=== PATIENT | male | born 1970 | race Caucasian/White ===

== ENCOUNTER 2023-11-18 07:29 | Outpatient (REF) | payer OTHER, SELFPAY ==
[2023-11-18 11:07] LABS: Appearance Urine Clear; Color Urine Dark Yellow; Glucose Urine UA Negative (Negative); Leukocyte Esterase Urine Negative (Negative); Nitrite Urine Negative (Negative); PH 5.5 (5.0-9.0); Specific Gravity - Urine 1.015 (1.005-1.025); Urine Blood Negative (Negative); Urine Ketones Negative (Negative); Urine Protein Negative (Neg-Trace)
[2023-11-18 11:09] LABS: MANUAL DIFF FLAG NO
[2023-11-18 11:11] LABS: Bacteria Urine None Seen (None Seen); Hyaline Casts Urine 0-2 /LPF (0-2); RBC Urine 0-2 /HPF (0-2); Squamous Epithelial Cell Urine 0-2 /HPF (0-2); WBC Urine 0-5 /HPF (0-5)
[2023-11-18 11:14] LABS: Basophils Percent Auto 0.5 % (0-2); Eosinophils Absolute Auto 0.1 X10*3/uL (0.0-0.4); Eosinophils Percent Auto 2.2 % (0-4); Hematocrit 44.7 % (42.0-52.0); Hemoglobin 15.8 g/dl (14.0-18.0); Imm Gran Abs Auto 0.01 X10*3/uL (0.00-0.03); Imm Gran Pct Auto 0.2 % (0.0-0.4); Lymphocytes Absolute Auto 2.1 X10*3/uL (1.2-4.9); Lymphocytes Percent Auto 33.7 % (20-40); Mean Corpuscular HGB Conc 35.3 g/dl (31.0-36.0); Mean Corpuscular Volume 96.1 fL (80.0-98.0); Mean Platelet Volume 9.3 fL (9.4-12.4); Monocytes Absolute Auto 0.6 X10*3/uL (0.1-1.2); Monocytes Percent Auto 9.3 % (2-11); Neutrophils Absolute Auto 3.4 x10*3/uL (2.0-8.3); Neutrophils Percent Auto 54.1 % (45-73); Platelet Count 342 X10*3/uL (160-400); Red Blood Count 4.65 X10*6/uL (4.60-5.80); Red Cell Distribution Width 11.1 % (11.0-16.0); White Blood Count 6.2 X10*3/uL (4.8-10.8)
[2023-11-18 11:25] LABS: Estimated Average Glucose 94 mg/dL; Hemoglobin A1c % 4.9 % (<6.0)
[2023-11-18 12:03] LABS: Creatinine Urine 74.03 mg/dL; Microalbumin Urine < 5.0 mg/L
[2023-11-18 12:34] LABS: Alanine Aminotransferase 8 U/L (0-40); Albumin Level 4.3 g/dL (3.5-5.0); Alkaline Phosphatase 74 U/L (39-117); Anion Gap 13 (12-20); Aspartate Amino Transferase 21 U/L (5-37); Bilirubin Total 0.5 mg/dL (0.0-1.0); Blood Urea Nitrogen 23 mg/dL (9-16); Calcium 9.4 mg/dL (8.4-10.2); Carbon Dioxide 26 mmol/L (22-29); Chloride 105 mmol/L (96-108); Cholesterol 181 mg/dL (<200); Estimated Glomerular Filt Rate > 60; Glucose Fasting 103 mg/dL (60-99); HDL Cholesterol 43 mg/dL (>40); LDL Cholesterol Calculated 114 mg/dL (<100); Potassium 3.8 mmol/L (3.3-5.1); Sodium 140 mmol/L (135-145); Triglycerides 120 mg/dL (<150)
[2023-11-18 12:36] LABS: Thyroid Stimulating Hormone 3.31 uIU/mL (0.32-4.0)
== END 2023-11-18 07:30 | disposition home or self-care (01) ==
LOC: HO.HMGCLDS 07:29
PROVIDERS: PCP Internal Medicine; Visit Provider Internal Medicine
DX: R73.03 Prediabetes (principal); I10 Essential (primary) hypertension
CPT/HCPCS: 36415; 80053; 80061; 81001; 82043; 82570; 83036; 84443; 85025

== ENCOUNTER 2023-12-29 09:26 | Outpatient (AMB) | payer OTHER, SELFPAY ==
[2023-12-29 09:39] VITALS: BP 135/84; PULSE 88; O2SAT 98; BMI 36.3
--- NOTE | 2023-12-29 09:39 | A.OFFVIS_ITS ---
Vital Signs 12/29/23 09:39 Height 5 ft 9 in Weight 246 lb BMI 36.3 BP 135/84 Blood Pressure Location Lt brachial Position Sitting Pulse 88 Pulse Source Pulse Oximeter Pulse Oximetry (%) 98 Oxygen Delivery Method Room Air Intake Visit Reasons: Polyneuropathy Allergies No Known Allergies Allergy (Verified 12/29/23 09:36) HPI Comments Details: Jalen is a very pleasant 53-year-old male who presents to the office today for evaluation management of his bilateral upper extremity pain. Patient reports he has been suffering with this pain for many years. Pain started in the posterior aspect left arm at the elbow with radiation down into the left hand. Three years ago he developed the same symptoms in his right arm. He reports it feels like his muscles are tight and cramping. Additionally has numbness and tingling with tenderness to palpation in certain areas. Patient has been evaluated at multiple hospitals with multiple specialties including [facility], [facility] and [facility]. He has undergone ulnar nerve release and ganglion cyst removal without improvement of his symptoms. He has bilateral deep brain stimulator for Parkinson's that also has not improved his symptoms. He currently takes 600 gabapentin 3 times daily and 90 mg of duloxetine daily but pain persists. In the past he has tried baclofen nabumetone and celecoxib without improvement. He has undergone an MRI of his cervical spine 1 year ago and an EMG 2 months ago. He had steroid injections to his neck without improvement of his symptoms. One week ago patient had injection to the left wrist which did not improve his pain. Patient has been diagnosed with Parkinson's and FND. He has an appointment January 09 at [facility] in [place] to follow-up on his deep brain stimulator. Pain today is rated as a 6/10, constant. Pain is worse in the evenings In terms of muscle damage condition is described as aching, spasming, hot, burning, tingling, cramping, throbbing, pins and needles. 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 Since this started he has had to leave his job. He feels mentally, emotionally depleted. [facility] Medical History (Updated 12/29/23 @ 17:15 by Nena Mantilla, BUTADIENE CONVERTER UTILITY OPERATOR, SURVEILLANCE ANALYST) Ulnar nerve entrapment Parkinsons Surgical History (Updated 12/29/23 @ 17:15 by Nena Mantilla APRN, JERO) S/P deep brain stimulator placement Review of Systems Const All systems reviewed & are unremarkable except as noted in HPI and below Physical Exam Vital Signs: Last Vital Signs Pulse 88 12/29/23 09:39 BP 135/84 12/29/23 09:39 Pulse Ox 98 12/29/23 09:39 Oxygen Delivery Method Room Air 12/29/23 09:39 BMI result Body Mass Index 36.3 General: awake, alert, oriented. Answers questions appropriately. Fully engaged in examination. Skin: warm, dry, intact HEENT: Normocephalic. Hearing intact. Cardiac: External chest normal in appearance. Respiratory: No cough, audible wheezing or stridor. Abdomen: without gross distension. MS: No obvious swelling or deformities. Bilateral upper extremity strength 5/5 Linear keloid scars noted over right lateral elbow from previous nerve release surgery Scar noted left wrist from previous nerve release surgery and ganglion cyst removal Neurological: Oriented to person, place, time and situation. Thought process intact. No gait abnormalities appreciated. Psychiatric: Appropriate mood and affect. Good judgment and insight. Results Reviewed Results Reviewed: Records have been requested from [facility], [facility], [facility] and [facility] Assessment & Plan Assessment & Plan (1) Chronic pain: Code(s): G89.29 - Other chronic pain Category: Medical (2) Neuropathy: Code(s): G62.9 - Polyneuropathy, unspecified Category: Medical (3) Nerve disorder: Comment: Functional nerve disorder Code(s): G58.9 - Mononeuropathy, unspecified Category: Medical Plan Jalen is a very pleasant 53-year-old male who presented to the office today for evaluation management of his bilateral upper extremity pain and neuropathy. Records have been requested for multiple hospitals for review Discontinue baclofen, new prescription sent for tizanidine 2 mg p.o. t.i.d.. Patient advised on cautions for use. Monitor blood pressure closely while taking this medication. Discontinue for dizziness, weakness syncope. Given patient's history of Parkinson's and deep brain stimulator implant he is not a candidate for neuromodulation. He may benefit from intrathecal drug d elivery device, ultimately need to review records and MRI imaging to determine if this is a viable option. All questions and concerns were answered, patient agrees to the plan. He will follow up in the office in 1 month to allow time for review of requested records, sooner if needed. Medications: New tizanidine Do not take with other muscle relaxants. No driving or alcohol use while taking this medication. Discontinue use for dizziness. Monitor blood pressure closely while taking this medication. 2 mg PO TID PRN 90 tabs 0RF muscle spasticity
== END 2023-12-29 10:30 | disposition home or self-care (01) ==
PROVIDERS: PCP Internal Medicine; Referring Provider Internal Medicine; Visit Provider Registered Nurse Emergency
DX: G89.29 Other chronic pain (principal); G62.9 Polyneuropathy, unspecified; G58.9 Mononeuropathy, unspecified
CPT/HCPCS: 99204

== ENCOUNTER → 2023-12-29 09:26 | Outpatient (BNVA) | payer OTHER, SELFPAY | PROVIDERS: PCP Internal Medicine; Referring Provider Internal Medicine; Visit Provider Registered Nurse Emergency | DX: G62.9 Polyneuropathy, unspecified (principal); G58.9 Mononeuropathy, unspecified; G89.29 Other chronic pain | CPT/HCPCS: 99202 ==

== ENCOUNTER 2025-03-12 14:19 | Outpatient (AMB) | payer OTHER, SELFPAY ==
--- NOTE | 2025-03-12 14:20 | MHC.PC.OV ---
Vital Signs 03/12/25 14:26 Height 5 ft 8 in Weight 172 lb BMI 26.1 BP 113/73 Respiration 18 Pulse 84 Pulse Source Pulse Oximeter Temp 97.8 F Temp Source Temporal Artery Scan Pulse Oximetry (%) 97 Oxygen Delivery Method Room Air Intake Visit Reasons: follow up [employer] Business Analyst Required: No Accompanied by: Self / Same As Patient Allergies No Known Allergies Allergy (Verified 03/12/25 14:55) Medication List - Last Reconciled 03/12/25 by Maureen Ramírez PA-C carbidopa-levodopa 10-100 mg (Sinemet) 1 tab orally EVERY 3 HOURS; carbidopa-levodopa 25-100 mg ER 1 tab PO BEDTIME carbidopa-levodopa 50-200 mg ER 1 tab PO BEDTIME chlorzoxazone 500 mg PO BID PRN 30 days clonazepam 0.5 mg PO BID PRN duloxetine 120 mg PO DAILY finasteride 5 mg PO DAILY gabapentin 600 mg PO BID propranolol ER 60 mg PO DAILY rasagiline (Azilect) 1 mg PO DAILY Tobacco use date assessed: 03/12/25 Dental Screening Dental Screen Date: 03/12/25 Did you have a dental visit in the last 12 months?: No Did you have a dental problem in the last 6 months where you did not have access to dental care?: No Was dental information given to patient?: Patient has dentist HPI follow up HPI Details The patient is a 54-year-old male presenting for a new patient appointment and follow-up for chronic pain management and referral needs. The patient reports experiencing nerve pain for which he receives ketamine infusions at [facility]. This treatment was initiated approximately six months ago after starting with lidocaine infusions. The patient was informed that a primary care physician referral is required to continue the treatment. The patient has a history of multiple surgeries, including deep brain surgery and arm surgery, due to severe pain and paresthesia. Despite these interventions, he continues to experience persistent paresthesia affecting his calf muscles and hamstrings. The patient is currently under the care of Dr. Catherine Wilkins for depression and anxiety, for which he is prescribed duloxetine. He denies any issues with alcohol consumption and reports adherence to his medication regimen, which includes carbidopa-levodopa, chlorzoxazone, clonazepam, duloxetine, finasteride, gabapentin, propranolol, and rasagiline. The patient has a history of Parkinson's disease, hypertension, neuropathy, chronic pain, and body dysmorphic disorder. He has not undergone a colonoscopy but completed a Cologuard test in 2022, which was negative. The patient reports a palpable umbilical hernia, which he has opted not to have surgically repaired due to the number of surgeries he has already undergone. Health maintenance - Colon cancer screening with Cologuard in 2022, result negative - Plan to repeat comprehensive blood work including CBC, CMP, liver panel, cholesterol, thyroid, vitamin B12, vitamin D, magnesium, PSA screening, and hemoglobin A1c Social history - Former nurse, had to stop working due to health issues - No tobacco use - No significant alcohol use [facility] Medical History Umbilical hernia Establishing care with new doctor, encounter for Polyneuropathy Parkinsonism, unspecified Encounter for colorectal cancer screening using Cologuard test (~11/17/22) Impingement of left ulnar nerve History of fracture of right ankle Essential hypertension Body dysmorphic disorder Anxiety Depression Ulnar nerve entrapment Parkinsons Surgical History H/O wisdom tooth extraction S/P deep brain stimulator placement Family History Mother Diabetes Father Dementia Social History Housing: House Alcohol intake: current Alcohol intake frequency: a few times a week Patient Tobacco Use Status: Never used Tobacco service: No Current occupational status: disabled Cognitive needs: Yes (parkinson's disease) Hearing needs: No Vision needs: Yes (reading glasses) Questionnaire PHQ-9 Over the last 2 weeks, how often have you been bothered by any of the following problems? 1. Little interest or pleasure in doing things: several days 2. Feeling down, depressed, or hopeless: several days 3. Trouble falling or staying asleep, or sleeping too much: several days 4. Feeling tired or having little energy: nearly every day 5. Poor appetite or overeating: not at all 6. Feeling bad about yourself - or that you are a failure or have let yourself or your family down: nearly every day 7. Trouble concentrating on things, such as reading the newspaper or watching television: several days 8. Moving or speaking so slowly that other people could have noticed. Or the opposite - being so fidgety or restless that you have been moving around a lot more than usual: several days 9. Thoughts that you would be better off or of hurting yourself in some way: not at all Total score: 11 Depression Screening Interpretation: Positive (Dr. Mel Mukherjee is currently treating patient ) Depression Screening Follow-up: Existing condition and In treatment Depression Screening Done: Yes 66139 - PHQ-9 Billing: Yes Source: Developed by Drs. Musa Bella, Starr Ward, Jai Durant and colleagues, with an educational loreta from [employer]. Thrive Questionnaire Date Thrive assessed: 03/12/25 I am a: Patient What is your living situation today?: I have a steady place to live Within the past 12 months, did the food you bought not last and you didn't have the money to get more?: Never true Within the past 12 months, did you worry whether your food would run out before you got money to buy more?: Never true Do you have trouble paying for medicines?: No Do you have trouble getting transportation to medical appointments?: No Do you have trouble paying your heating and electricity bill?: No Do you have trouble taking care of your child, family member or friend?: No Do you have trouble with day-to-day activities such as bathing, preparing meals, shopping, managing finances, etc.?: No Are you currently unemployed and looking for a job?: No Are you interested in more education?: No Please select the resources that you would like help with: None THRIVE Score: 0 AUDIT C Alcohol Use Questionnaire (AUDIT-C) 1. How often do you have a drink containing alcohol?: 2-3 times a week 2. How many drinks containing alcohol do you have on a typical day when you are drinking?: 1 or 2 3. How often do you have six or more drinks on one occasion?: Never Total Score: 3 Score Reviewed/Action Taken: No ZONIA-7 AMB Questionnaire ZONIA-7 Date ZONIA - 7 assessed: 03/12/25 Feeling nervous, anxious, or on edge: 3 = Nearly every day Not being able to stop or control worryin = Nearly every day Worrying too much about different things: 3 = Nearly every day Trouble relaxin = Nearly every day Being so restless that it is hard to sit still: 3 = Nearly every day Becoming easily annoyed or irritable: 3 = Nearly every day Feeling afraid as if something awful might happen: 3 = Nearly every day Total ZONIA-7 score (0-4 normal; 5-9 mild; 10-14 moderate; 15-21 severe): 21 Source: Developed by Drs. Musa Bella, Starr Ward, Jai Durant and colleagues, with an educational loreta from [employer]. ZONIA-7 Assessment Billing ZONIA-7 Assessment Tool: ZONIA-7 Assessment 61029 Review of Systems Const Details: - Cardiovascular: Denies chest pain, palpitations - Respiratory: Denies dyspnea, cough - Gastrointestinal: Reports umbilical hernia, denies abdominal pain - Neurological: Reports persistent paresthesia, denies headaches All systems reviewed & are unremarkable except as noted in HPI and below Physical exam (Primary Care) Vital Signs: Last Vital Signs Temp 97.8 F 03/12/25 14:26 Pulse 84 03/12/25 14:26 Resp 18 03/12/25 14:26 BP 113/73 03/12/25 14:26 Pulse Ox 97 03/12/25 14:26 Oxygen Delivery Method Room Air 03/12/25 14:26 Care Plan Goal for BP management: <140/90 at Goal BMI result Body Mass Index 26.1 BMI Assessment/Plan discussion: High BMI High, discussed plan: lifestyle, weight reduction, dietary, physical activity and alcohol moderation Tobacco/Smoking Status: Tobacco use Status Tobacco use date assessed 03/12/25 03/12/25 14:43 Patient Tobacco Use Status Never used Tobacco 03/12/25 14:43 PHQ-9: PHQ-9 Score PHQ-9: Total score 11 03/12/25 14:43 Depression Screening Interpretation: Positive (Dr. Mel Mukherjee is currently treating patient ) Depression Screening Follow-up: Existing condition and In treatment Thrive Assessment: Date of Thrive Assessment Date Thrive assessed 03/12/25 03/12/25 14:43 Const Other: Appearance: Alert. Oriented X3. No acute distress. Head: Normal external exam. Normocephalic. Atraumatic. Eyes: Pupils are equal, round, and reactive to light. Extraocular movements intact. Conjunctiva and sclera normal. Eyelids normal. Ears: External auditory canal normal. Tympanic membranes normal. Throat: Pharynx normal. Uvula midline. Moist mucous membranes. Neck: Normal inspection. Neck supple. Full range of motion. No adenopathy. Thyroid Normal. No meningeal signs. No neck mass noted. Cardiovascular: Normal heart rate and rhythm. Heart sound normal. No murmurs noted. Pulses normal throughout. Respiratory: No respiratory distress. Painless inspiration. Breath sounds normal. No wheezes/rales/rhonchi noted. Chest nontender. No accessory muscle usage noted or decreased air movement noted. Abdomen: Soft and nontender. Bowel sounds normal in all 4 quadrants. No distention noted. No organomegaly noted. No visible injury noted. Umbilical hernia noted. Back: No costovertebral angle tenderness. Full range of motion noted. Skin: Skin warm and dry. Normal skin color. Normal skin turgor. No rashes/lesions/lacerations noted. Extremities: No lower extremity edema. Extremities exhibit normal range of motion. Extremities nontender. Neuro: Oriented X 3. No motor deficit. No sensory deficit. Reflexes normal. Results Reviewed Results Reviewed: - Labs: CBC normal, no anemia, normal platelets, normal kidney function, slightly elevated fasting glucose, A1c 4.9, normal liver enzymes, total cholesterol 188, LDL 114, normal thyroid function Coding Level of Care Code New Pt Level 4 (12375) Complex EM visit Add On G2211 Diagnoses Establishing care with new doctor, encounter for Nerve disorder G58.9 Neuropathy G62.9 Depression F32.A Anxiety F41.9 Parkinsons G20.A1 Essential hypertension I10 Polyneuropathy G62.9 Chronic pain G89.29 Body dysmorphic disorder F45.22 Umbilical hernia K42.9 Additional Codes PHQ-9 - 87259 - PHQ-9 Billing: Yes ([id number]) ZONIA-7 Assessment Billing - ZONIA-7 Assessment Tool: ZONIA-7 Assessment 39793 ([id number]) Time Spent (min) 40 Assessment & Plan Assessment & Plan (1) Establishing care with new doctor, encounter for: Code(s): Z76.89 - Persons encountering health services in other specified circumstances Category: Medical (2) Nerve disorder: Comment: Functional nerve disorder Code(s): G58.9 - Mononeuropathy, unspecified Category: Medical Plan: The patient receives ketamine infusions at [facility] for nerve pain management. A referral from a primary care physician is required to continue this treatment. Condition is chronic and stable continue to monitor. (3) Neuropathy: Code(s): G62.9 - Polyneuropathy, unspecified Category: Medical Plan: The patient experiences persistent paresthesia despite previous surgeries. Current management includes medication adherence and monitoring of symptoms. Condition is chronic and stable continue to monitor. (4) Depression: Code(s): F32.A - Depression, unspecified Category: Medical Plan: The patient is under the care of Dr. Catherine Wilkins and is prescribed duloxetine for depression management. Condition is chronic and stable will continue to monitor. (5) Anxiety: Code(s): F41.9 - Anxiety disorder, unspecified Category: Medical Plan: The patient is managed for anxiety with duloxetine under the care of Dr. Catherine Wilkins. Condition is chronic and stable will continue to monitor. (6) Parkinsons: Code(s): G20.A1 - Parkinson's disease without dyskinesia, without mention of fluctuations Category: Medical Plan: The patient is on a regimen including carbidopa-levodopa and rasagiline for Parkinson's disease management. Condition is chronic and stable will continue to monitor. (7) Essential hypertension: Code(s): I10 - Essential (primary) hypertension Category: Medical Plan: The patient is on propranolol for hypertension management. Condition is chronic and stable will continue to monitor. (8) Polyneuropathy: Code(s): G62.9 - Polyneuropathy, unspecified Category: Medical Plan: The patient experiences neuropathy and is managed with gabapentin. Condition is chronic and stable will continue to monitor. (9) Chronic pain: Code(s): G89.29 - Other chronic pain Category: Medical Plan: Chronic pain management includes medication adherence and ketamine infusions. Condition is chronic and stable will continue to monitor. (10) Body dysmorphic disorder: Code(s): F45.22 - Body dysmorphic disorder Category: Medical Plan: The patient has a history of body dysmorphic disorder, which is part of his comprehensive mental health management. Condition is chronic and stable will continue to monitor. (11) Umbilical hernia: Code(s): K42.9 - Umbilical hernia without obstruction or gangrene Category: Medical Plan: The patient has an umbilical hernia but has opted against surgical intervention at this time. Condition is chronic and stable will continue to monitor. Plan Plan Patient was informed and verbally consented to the use of an ambient scribe for clinic note documentation during this visit. 1. Nerve Pain The patient receives ketamine infusions at [facility] for nerve pain management. A referral from a primary care physician is required to continue this treatment. 2. Paresthesia The patient experiences persistent paresthesia despite previous surgeries. Current management includes medication adherence and monitoring of symptoms. 3. Depression The patient is under the care of Dr. Catherine Wilkins and is prescribed duloxetine for depression management. 4. Anxiety The patient is managed for anxiety with duloxetine under the care of Dr. Catherine Wilkins. 5. Parkinson's Disease The patient is on a regimen including carbidopa-levodopa and rasagiline for Parkinson's disease management. 6. Hypertension The patient is on propranolol for hypertension management. 7. Neuropathy The patient experiences neuropathy and is managed with gabapentin. 8. Chronic Pain Chronic pain management includes medication adherence and ketamine infusions. 9. Body Dysmorphic Disorder The patient has a history of body dysmorphic disorder, which is part of his comprehensive mental health management. 10. Umbilical Hernia The patient has an umbilical hernia but has opted against surgical intervention at this time. During the visit, we discussed the need for a referral to continue ketamine infusions for nerve pain management. We also reviewed the patient's current medication regimen and confirmed that no changes were necessary at this time. The patient was advised to continue with his current management plan and to follow up in three months. We also discussed the importance of completing the recommended blood work prior to the next visit. Orders: Orders C Reactive Protein Today Z00.00 - Encounter for general adult medical examination without abnormal findings Complete Blood Count Auto Diff Today Z00.00 - Encounter for general adult medical examination without abnormal findings Hemoglobin A1c Today Z00.00 - Encounter for general adult medical examination without abnormal findings Vitamin D 25-OH Total Today Z00.00 - Encounter for general adult medical examination without abnormal findings Comprehensive [place]. Panel Fast Today Z00.00 - Encounter for general adult medical examination without abnormal findings Lipid Panel Today Z00.00 - Encounter for general adult medical examination without abnormal findings Liver Panel Today Z00.00 - Encounter for general adult medical examination without abnormal findings PSA,Total (Free>4and<10) Today Z00.00 - Encounter for general adult medical examination without abnormal findings TSH reflex Free T4 Today Z00.00 - Encounter for general adult medical examination without abnormal findings Magnesium Today Z00.00 - Encounter for general adult medical examination without abnormal findings Vitamin B12 and Folate Today Z00.00 - Encounter for general adult medical examination without abnormal findings Referrals Pain Management Referral F32.A - Depression, unspecified, F41.9 - Anxiety disorder, unspecified, F45.22 - Body dysmorphic disorder, G20.A1 - Parkinson's disease without dyskinesia, without mention of fluctuations, G20.C - Parkinsonism, unspecified, G58.9 - Mononeuropathy, unspecified, G62.9 - Polyneuropathy, unspecified, G89.29 - Other chronic pain Patient Instructions: - Continue current medication regimen as prescribed. - Schedule and complete blood work before the next follow-up appointment. - Follow up in three months for a routine check-up and review of blood work results.
[2025-03-12 14:26] VITALS: BP 113/73; PULSE 84; RESP 18; TEMP 36.6; O2SAT 97; BMI 26.1
--- OUTSIDE RECORDS SUMMARY | 2025-03-12 14:51 | XMS_ITS | Encounter Summary ---
Author Organization [facility] Address [address] [place] [address] Care Team Providers Care Assistant Associate Professor Name Role Phone Musa Espinal Primary Care Provider [phone] Encounter Details Date Type Department Care Team (Late st Contact Info) Description 02/21/2025 myChart Message [facility] [address] [place] [address] Twyla Ricketts MD [address] [place] [address] pain Social History Tobacco Use Types Packs/Day Years Used Date Smoking Tobacco: Never Smokeless Tobacco: Never Comments:: Alcohol Use Standard Drinks/Week Comments Not Currently 0 (1 standard drink = 0.6 oz pur e alcohol) Sex and Gender Information Value Date Recorded Sex Assigned at Male 11/05/2023 7:39 PM EST Legal Sex Male 7:06 PM EDT Gender Identity Male 11/05/2023 7:39 PM EST Sexual Orientation Straight 11/05/2023 7: 39 PM EST documented as of this encounter Plan of Treatment Upcoming Encounters Date Type Department Care Team (Late st Contact Info) Description 04/23/2025 8:00 AM EDT Office Visit [facility] [address], [place] [phone] Jennifer Henriquez NP [address], [place] [phone] documented as of this encounter Visit Diagnoses Not on filedocumented in this encounter Care Teams Assistant Associate Professor Relationship Specialty Start Date End Date Musa Espinal [address] [place] [id number] PCP - General 03/30/17 documented as of this encounter
--- OUTSIDE RECORDS SUMMARY | 2025-03-12 14:51 | XMS_ITS | Clinical Summary ---
Author Organization [facility] Address [address] [place] [id number] Care Team Providers Care Handicapper [employer] Name Role Phone Teddy Musa Adalid DASH Primary Care Provider [phone] Allergies No known active allergies Medications Medication Sig Dispensed Refills Start Date End Date Status isradipine (DYNACIRC) 5 MG capsule TAKE 1 CAPSULE BY MOUTH 2 TIMES PER DAY FOR 30 DAYS 0 05/25/2020 Active Rasagiline Mesylate (AZILECT) 1 MG TABS tablet *01/21TAKE A HALF A TABLET BY MOUTH DAILY FOR 1 WEEK THEN 1 TABLET BY MOUTH DAILY 0 05/14/2020 Active carbidopa-levodopa (SINEMET) 25-100 MG per tablet TAKE 1 TABLET BY MOUTH 5 TIMES A DAY 0 03/27/2020 Active escitalopram (LEXAPRO) tablet 10 mg Take 20 mg by mouth daily. 0 04/08/2020 Active finasteride (PROSCAR) 5 MG tablet TAKE 1/4TH TABLET BY MOUTH EVERY DAY 0 06/03/2020 Active baclofen (LIORESAL) 5 MG tablet 0 07/09/2020 Active Active Problems Problem Noted Date Diagnosed Date Post-traumatic osteoarthritis of right elbow Family History Medical History Relation Name Comments Diabetes Father Hypertension Mother Cancer Sister Relation Name Status Comments Father Mother Sister Social History Tobacco Use Types Packs/Day Years Used Date Smoking Tobacco: Never Smokeless Tobacco: Never Alcohol Use Standard Drinks/Week Comments Yes 0 (1 standard drink = 0.6 oz pur e alcohol) Sex and Gender Information Value Date Recorded Sex Assigned at Male 06/26/2020 3:26 PM EDT Gender Identity Male 06/26/2020 3:26 PM EDT Sexual Orientation Not on file Job Start Date Occupation Industry Not on file Not on file Not on file Last Filed Vital Signs Vital Sign Reading Time Taken Comments Blood Pressure 173/105 04/26/2022 9:25 AM EDT Pulse - - Temperature 36.7 C (98 F) 04/26/2022 9:25 AM EDT Respiratory Rate - - Oxygen Saturation 98% 04/26/2022 9:25 AM EDT Inhaled Oxygen Concentration - - Weight 106.6 kg (235 lb) 04/26/2022 9:25 AM EDT Height 175.3 cm (5' 9 ) 04/26/2022 9:25 AM EDT Body Mass Index 34.7 04/26/2022 9:25 AM EDT Plan of Treatment Health Maintenance Due Date Last Done Comments Hepatitis B Vaccines (1 of 3 - 3-dose series) 1969 Hepatitis C Screening 1969 COVID-19 Vaccine (#1) 1969 Depression Screening 1981 Preventative Health Evaluation 1987 DTap / Tdap / Td (1 - Tdap) 1988 Colon Cancer Screening (Colonoscopy) 2014 Shingrix-Zoster Vaccine (1 of 2) 2019 Influenza Vaccine (Season Ended) 2025 Pneumococcal Vaccine Aged Out No long er eligible based on patient's age to complete this topic RSV Ped < 20 months Aged Out No longe r eligible based on patient's age to complete this topic Care Teams Handicapper [employer] Relationship Specialty Start Date End Date Musa Espinal DO [address] [place] [address] [phone] PCP - General Internal Medicine 06/18/20
--- OUTSIDE RECORDS SUMMARY | 2025-03-12 14:51 | XMS_ITS | Clinical Summary ---
Author Organization [facility] it Address [address] [place] [address] Care Team Providers Care Pin Sticker Name Role Phone Musa Espinal DO Primary Care Provider [phone] Surgical History Surgery Date Site/Laterality Comments OTHER SURGICAL HISTORY 2014 Left PROCEDURE: HISTORICAL ARM SURGERY; COMMENT: Ulnar nerve decompression at elbow and wrist, Dr. Chau ANKLE SURGERY Right PROCEDURE: HISTORICAL ANKLE SURGERY; COMMENT: Fracture ORIF WISDOM TOOTH EXTRACTION PROCEDURE: HISTORICAL WISDOM TEETH EXTRACTION ELBOW SURGERY 11/03/2020 Right PROCEDURE: HISTORICAL ELBOW SURGERY; COMMENT: Radial Head Joint Replacement, Dr. Reynolds Social History Tobacco Use Types Packs/Day Years Used Date Smoking Tobacco: Never Smokeless Tobacco: Never Alcohol Use Standard Drinks/Week Comments Yes 1 (1 standard drink = 0.6 oz pur e alcohol) Sex and Gender Information Value Date Recorded Sex Assigned at Not on file Legal Sex Male 8:48 PM EST Gender Identity Not on file Sexual Orientation Not on file Obstetrics History Last Filed Vital Signs Vital Sign Reading Time Taken Comments Blood Pressure 129/77 01/25/2024 1:59 PM EDT Pulse 130 01/25/2024 1:59 PM EDT Temperature - - Respiratory Rate - - Oxygen Saturation - - Inhaled Oxygen Concentration - - Weight 111 kg (245 lb) 01/25/2024 1:59 PM EDT Height 177.8 cm (5' 10 ) 01/25/2024 1:59 PM EDT Body Mass Index 35.15 01/25/2024 1:59 PM EDT Plan of Treatment Health Maintenance Due Date Last Done Comments DTaP,Tdap,and Td Vaccines (1 - Tdap) 1988 Hepatitis B Vaccines (1 of 3 - 19+ 3-dose series) 1988 Pneumococcal Vaccine: 50+ Ye ars (1 of 1 - PCV) 2019 Zoster Vaccines (1 of 2) 2019 Cholesterol Screening (Lipid Panel) 10/17/2019 Colorectal Cancer Screening: Colonoscopy 10/17/2019 Depression Screening 10/17/2019 HIV Screening 10/17/2019 Hepatitis C Screening 10/17/2019 Social Influencers of Health Screening 10/17/2019 COVID-19 Vaccine (1 - 2023-2 5 season) 2024 Hypertension/CHF/CAD Annual BMP Blood Test 01/16/2025 Influenza Vaccine (#1) 2025 HIB Vaccines Aged Out No longer eligi ble based on patient's age to complete this topic HPV Vaccines Aged Out No longer eligi ble based on patient's age to complete this topic Hepatitis A Vaccines Aged Out No long er eligible based on patient's age to complete this topic IPV Vaccines Aged Out No longer eligi ble based on patient's age to complete this topic MMR Vaccines Aged Out No longer eligi ble based on patient's age to complete this topic Meningococcal ACWY Vaccine Aged Out N o longer eligible based on patient's age to complete this topic Meningococcal B Vaccine Aged Out No l onger eligible based on patient's age to complete this topic Pneumococcal Vaccine: Pediat rics (0 to 5 Years) and At-Risk Patients (6 to 64 Years) Aged Out No longer eligible b ased on patient's age to complete this topic RSV Immunization Patients Un ashok 20 months Aged Out No longer eligible b ased on patient's age to complete this topic Varicella Vaccines Aged Out No longer eligible based on patient's age to complete this topic Care Teams Pin Sticker Relationship Specialty Start Date End Date Musa Espinal DO [address] [place] [phone] PCP - General Internal Medicine 10/04/21
== END 2025-03-12 15:09 | disposition home or self-care (01) ==
LOC: HO.HMCSH 14:19
PROVIDERS: PCP Internal Medicine; Visit Provider Physician Assistant Medical
DX: Z76.89 Persons encountering health services in other specified circumstances (principal); G58.9 Mononeuropathy, unspecified; G62.9 Polyneuropathy, unspecified; F32.A Depression, unspecified; F41.9 Anxiety disorder, unspecified; G20.A1 Parkinson's disease without dyskinesia, without mention of fluctuations; I10 Essential (primary) hypertension; G89.29 Other chronic pain; F45.22 Body dysmorphic disorder; K42.9 Umbilical hernia without obstruction or gangrene

== ENCOUNTER → 2025-03-12 14:19 | Outpatient (BNVA) | payer MEDICARE, MEDICAID, SELFPAY | PROVIDERS: PCP Internal Medicine; Visit Provider Physician Assistant Medical | DX: Z76.89 Persons encountering health services in other specified circumstances (principal); G58.9 Mononeuropathy, unspecified; G62.9 Polyneuropathy, unspecified; F32.A Depression, unspecified; F41.9 Anxiety disorder, unspecified; G20.A1 Parkinson's disease without dyskinesia, without mention of fluctuations; I10 Essential (primary) hypertension; G89.29 Other chronic pain; F45.22 Body dysmorphic disorder; K42.9 Umbilical hernia without obstruction or gangrene | CPT/HCPCS: 96127; 99202 ==

== ENCOUNTER 2025-04-14 13:43 | Outpatient (AMB) | payer MEDICARE, MEDICAID, SELFPAY ==
[2025-04-14 13:47] VITALS: BP 128/74; PULSE 78; RESP 16; TEMP 36.6; O2SAT 97; BMI 36.2
--- NOTE | 2025-04-14 13:47 | A.OFFPC_ITS ---
Vital Signs 04/14/25 13:47 Height 5 ft 8 in Weight 238 lb BMI 36.2 BP 128/74 Respiration 16 Pulse 78 Pulse Source Pulse Oximeter Temp 97.8 F Temp Source Temporal Artery Scan Pulse Oximetry (%) 97 Oxygen Delivery Method Room Air Intake Visit Reasons: Parkinson's disease Billboard Erector Required: No Accompanied by: Self / Same As Patient Allergies No Known Allergies Allergy (Verified 04/14/25 14:03) Medication List - Last Reconciled 04/14/25 by Maureen Ramírez PA-C carbidopa-levodopa 25-100 mg ER 1 tab PO BEDTIME carbidopa-levodopa 50-200 mg ER 1 tab PO BEDTIME chlorzoxazone 500 mg PO BID PRN 30 days clonazepam 0.5 mg PO BID PRN duloxetine 120 mg PO DAILY finasteride 5 mg PO DAILY gabapentin 600 mg PO BID propranolol ER 60 mg PO DAILY rasagiline (Azilect) 1 mg PO DAILY Tobacco use date assessed: 04/14/25 Dental Screening Dental Screen Date: 03/12/25 HPI Parkinson's disease HPI Details The patient is a 54-year-old male presenting with cramps and chronic pain. The patient has a history of Parkinson's disease, managed with Carbidopa- Levodopa and duloxetine, and receives ketamine infusions for nerve pain. He is also on gabapentin for neuropathy. The patient reports persistent leg cramps since October or November, without asso ciated leg swelling. He describes the cramps as frequent and bothersome. He has tried various medications, including baclofen and tizanidine, and has been evaluated for functional neurological disorder and CRPS. The patient has a history of a hernia, currently not causing significant discomfort, but he is concerned about surgical complications due to CRPS. Social History - Exercise: Engages in light exercise, i ncluding biking and light weights. [facility] Medical History (Updated 04/14/25 @ 14:43 by Maureen Ramírez PA-C) Complex regional pain syndrome I, unspecified Muscle cramps Functional neurological symptom disorder with abnormal movement Umbilical hernia Establishing care with new doctor, encounter for Polyneuropathy Parkinsonism, unspecified Encounter for colorectal cancer screening using Cologuard test (~11/17/22) Impingement of left ulnar nerve History of fracture of right ankle Essential hypertension Body dysmorphic disorder Anxiety Depression Ulnar nerve entrapment Parkinsons Surgical History H/O wisdom tooth extraction S/P deep brain stimulator placement Family History Mother Diabetes Father Dementia Social History Housing: House Alcohol intake: current Alcohol intake frequency: a few times a week Patient Tobacco Use Status: Never used Tobacco service: No Current occupational status: disabled Cognitive needs: Yes (parkinson's disease) Hearing needs: No Vision needs: Yes (reading glasses) Questionnaire PHQ-9 Over the last 2 weeks, how often have you been bothered by any of the following problems? 1. Little interest or pleasure in doing things: several days 2. Feeling down, depressed, or hopeless: several days 3. Trouble falling or staying asleep, or sleeping too much: several days 4. Feeling tired or having little energy: nearly every day 5. Poor appetite or overeating: not at all 6. Feeling bad about yourself - or that you are a failure or have let yourself or your family down: nearly every day 7. Trouble concentrating on things, such as reading the newspaper or watching television: several days 8. Moving or speaking so slowly that other people could have noticed. Or the opposite - being so fidgety or restless that you have been moving around a lot more than usual: several days 9. Thoughts that you would be better off or of hurting yourself in some way: not at all Total score: 11 Depression Screening Interpretation: Positive (Dr. Mel Mukherjee is currently treating patient ) Depression Screening Follow-up: Existing condition and In treatment Depression Screening Done: Yes 04016 - PHQ-9 Billing: Yes Source: Developed by Drs. Musa Bella, Starr Ward, Jai Durant and colleagues, with an educational loreta from [employer]. Thrive Questionnaire Date Thrive assessed: 03/12/25 I am a: Patient What is your living situation today?: I have a steady place to live Within the past 12 months, did the food you bought not last and you didn't have the money to get more?: Never true Within the past 12 months, did you worry whether your food would run out before you got money to buy more?: Never true Do you have trouble paying for medicines?: No Do you have trouble getting transportation to medical appointments?: No Do you have trouble paying your heating and electricity bill?: No Do you have trouble taking care of your child, family member or friend?: No Do you have trouble with day-to-day activities such as bathing, preparing meals, shopping, managing finances, etc.?: No Are you currently unemployed and looking for a job?: No Are you interested in more education?: No Please select the resources that you would like help with: None THRIVE Score: 0 AUDIT C Alcohol Use Questionnaire (AUDIT-C) 1. How often do you have a drink containing alcohol?: 2-3 times a week 2. How many drinks containing alcohol do you have on a typical day when you are drinking?: 1 or 2 3. How often do you have six or more drinks on one occasion?: Never Total Score: 3 Score Reviewed/Action Taken: No ZONIA-7 AMB Questionnaire ZONIA-7 Date ZONIA - 7 assessed: 03/12/25 Feeling nervous, anxious, or on edge: 3 = Nearly every day Not being able to stop or control worryin = Nearly every day Worrying too much about different things: 3 = Nearly every day Trouble relaxin = Nearly every day Being so restless that it is hard to sit still: 3 = Nearly every day Becoming easily annoyed or irritable: 3 = Nearly every day Feeling afraid as if something awful might happen: 3 = Nearly every day Total ZONIA-7 score (0-4 normal; 5-9 mild; 10-14 moderate; 15-21 severe): 21 Source: Developed by Drs. Musa Bella, Starr Ward, Jai Durant and colleagues, with an educational loreta from [employer]. ZONIA-7 Assessment Billing ZONIA-7 Assessment Tool: ZONIA-7 Assessment 39722 Review of Systems Const Details: - Musculoskeletal: Reports frequent leg cramps; denies leg swelling. - Neurological: Reports chronic pain and neuropathy. All systems reviewed & are unremarkable except as noted in HPI and below Physical exam (Primary Care) Vital Signs: Last Vital Signs Temp 97.8 F 04/14/25 13:47 Pulse 78 04/14/25 13:47 Resp 16 04/14/25 13:47 BP 128/74 04/14/25 13:47 Pulse Ox 97 04/14/25 13:47 Oxygen Delivery Method Room Air 04/14/25 13:47 Care Plan Goal for BP management: <140/90 at Goal BMI result Body Mass Index 36.2 BMI Assessment/Plan discussion: High BMI High, discussed plan: lifestyle, weight reduction, dietary, physical activity and alcohol moderation Tobacco/Smoking Status: Tobacco use Status Tobacco use date assessed 04/14/25 04/14/25 13:56 Patient Tobacco Use Status Never used Tobacco 04/14/25 13:56 PHQ-9: PHQ-9 Score PHQ-9: Total score 11 04/14/25 13:56 Depression Screening Interpretation: Positive (Dr. Mel Mukherjee is currently treating patient ) Depression Screening Follow-up: Existing condition and In treatment Thrive Assessment: Date of Thrive Assessment Date Thrive assessed 03/12/25 04/14/25 13:56 Const Other: Appearance: Alert. Oriented X3. No acute distress. Head: Normal external exam. Normocephalic. Atraumatic. Eyes: Pupils are equal, round, and reactive to light. Extraocular movements intact. Conjunctiva and sclera normal. Eyelids normal. Throat: Pharynx normal. Uvula midline. Moist mucous membranes. Neck: Normal inspection. Neck supple. Full range of motion. Cardiovascular: Normal heart rate and rhythm. Respiratory: No respiratory distress. Painless inspiration. Back: Full range of motion noted. Skin: Skin warm and dry. Normal skin color. Normal skin turgor. No rashes/lesions/lacerations noted. Extremities: Extremities exhibit normal range of motion. However, patient reports cramping in legs, particularly in the hamstrings, occurring all the time. No calf tenderness and no lower extremity edema is noted. Neuro: Oriented X 3. No motor deficit. No sensory deficit. Reflexes normal. However, patient reports worsening condition in the hand, with decreased movement and a weird feeling throughout the whole arm. Coding Level of Care Code Est Pt Level 4 (01545) Complex EM visit Add On G2211 Diagnoses Parkinsons G20.A1 Neuropathy G62.9 Functional neurological symptom disorder with abnormal movement F44.4 Chronic pain G89.29 Muscle cramps R25.2 Umbilical hernia K42.9 Complex regional pain syndrome I, unspecified G90.50 Additional Codes ZONIA-7 Assessment Billing - ZONIA-7 Assessment Tool: ZONIA-7 Assessment 99696 ([id number]) PHQ-9 - 26348 - PHQ-9 Billing: Yes ([id number]) Time Spent (min) 50 Assessment & Plan Assessment & Plan (1) Parkinsons: Code(s): G20.A1 - Parkinson's disease without dyskinesia, without mention of fluctuations Category: Medical Plan: The patient continues management with Carbidopa-Levodopa and duloxetine for Parkinson's disease. He is also receiving ketamine infusions for nerve pain associated with the condition. (2) Neuropathy: Code(s): G62.9 - Polyneuropathy, unspecified Category: Medical Plan: The patient is on gabapentin, which has been increased to 600 mg three times a day to manage neuropathic pain. (3) Functional neurological symptom disorder with abnormal movement: Code(s): F44.4 - Conversion disorder with motor symptom or deficit Category: Medical Plan: The patient has been evaluated for functional neurological disorder, and management strategies are being considered. (4) Chronic pain: Code(s): G89.29 - Other chronic pain Category: Medical Plan: The patient reports chronic pain and is considering an increase in gabapentin dosage to manage symptoms. (5) Muscle cramps: Code(s): R25.2 - Cramp and spasm Category: Medical Plan: The patient experiences frequent leg cramps, and blood work has been ordered to check for electrolyte imbalances and other potential causes. (6) Umbilical hernia: Code(s): K42.9 - Umbilical hernia without obstruction or gangrene Category: Medical Plan: The patient has a hernia that is not currently causing significant discomfort, and surgical intervention is not planned at this time due to concerns about CRPS. (7) Complex regional pain syndrome I, unspecified: Code(s): G90.50 - Complex regional pain syndrome I, unspecified Category: Medical Plan: The patient has been diagnosed with CRPS, and management includes avoiding surgical interventions that may exacerbate symptoms. Plan Plan Patient was informed and verbally consented to the use of an ambient scribe for clinic note documentation during this visit. 1. Parkinson's Disease The patient continues management with Carbidopa-Levodopa and duloxetine for Parkinson's disease. He is also receiving ketamine infusions for nerve pain associated with the condition. 2. Neuropathy The patient is on gabapentin, which has been increased to 600 mg three times a day to manage neuropathic pain. 3. Functional Neurological Disorder The patient has been evaluated for functional neurological disorder, and management strategies are being considered. 4. Chronic Pain The patient reports chronic pain and is considering an increase in gabapentin dosage to manage symptoms. 5. Muscle Cramps The patient experiences frequent leg cramps, and blood work has been ordered to check for electrolyte imbalances and other potential causes. 6. Hernia The patient has a hernia that is not currently causing significant discomfort, and surgical intervention is not planned at this time due to concerns about CRPS. 7. Complex Regional Pain Syndrome (Crps) The patient has been diagnosed with CRPS, and management includes avoiding surgical interventions that may exacerbate symptoms. I discussed with the patient the management of his Parkinson's disease, including the continuation of Carbidopa-Levodopa and duloxetine, and the use of ketamine infusions for nerve pain. We also talked about increasing the gabapentin dosage to manage neuropathy and chronic pain. I advised the patient to complete the ordered blood work to check for any deficiencies that might be contributing to his muscle cramps. We discussed the potential risks of surgical intervention for his hernia due to his CRPS diagnosis and agreed to avoid surgery at this time. Orders: Orders Creatine Kinase Total Today Z00.00 - Encounter for general adult medical examination without abnormal findings Medications: Changed From gabapentin 600 mg PO BID 180 tabs 0RF To gabapentin 600 mg PO TID 270 tabs 3RF 90 days Patient Instructions: - Continue taking Carbidopa-Levodopa and duloxetine as prescribed. - Increase gabapentin to 600 mg three times a day. - Complete the blood work as ordered before the next visit. - Avoid any unnecessary surgical procedures due to CRPS. - Follow up in June to assess the effectiveness of the current treatment plan.
--- OUTSIDE RECORDS SUMMARY | 2025-04-14 13:55 | XMS_ITS | Clinical Summary ---
Author Organization [facility] Address [address] [place] [address] Care Team Providers Care Trenching Machine Operator Name Role Phone Ulisses Cee MD Unavailable [phone] Unknown, Pcp Primary Care Provider Unavailabl e Allergies No known active allergies Medications * This document contains information received from the source organization and may not represent a complete record from that organization. 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 01/16/2015 Major depressive disorder, recurrent 01/16/2015 Social History Tobacco Use Types Packs/Day Years Used Date Smoking Tobacco: Never Assessed Sex and Gender Information Value Date Recorded Sex Assigned at Not on file Legal Sex Male 10:12 AM EDT Gender Identity Not on file Sexual Orientation Not on file Plan of Treatment Not on file Care Teams Trenching Machine Operator Relationship Specialty Start Date End Date Unknown, PcpMD Unknown Address Unknown [facility], [facility] PCP - General Psychiatry 12/22/14 Ulisses Cee MD [address] [address] Neurology 12/22/14
--- OUTSIDE RECORDS SUMMARY | 2025-04-14 13:55 | XMS_ITS ---
[facility] Name [facility] Organization [facility] Care Team Organization Name Specialty Phone Email Start Date End Da te [facility] NULL Primary Care 01/16/2023 04/29/2024 [facility] NULL Primary Care 07/19/2022 04/29/2024
--- OUTSIDE RECORDS SUMMARY | 2025-04-14 13:55 | XMS_ITS | Clinical Summary ---
Author Organization [facility] Address [address] [place] [id number] Care Team Providers Care Spooler Operator Automatic Name Role Phone Teddy Musa Adalid DASH Primary Care Provider [phone] Allergies No known active allergies Medications Medication [...] Vaccine (1 of 2) 2019 Influenza Vaccine (#1) 2025 Pneumococcal Vaccine Aged Out No long er eligible based on patient's age to complete this topic RSV Ped < 20 months Aged Out No longe r eligible based on patient's age to complete this topic Care Teams Spooler Operator Automatic Relationship Specialty Start Date End Date Musa Espinal DO [address] [place] [phone] PCP - General Internal Medicine 06/18/20
--- OUTSIDE RECORDS SUMMARY | 2025-04-14 13:55 | XMS_ITS | Clinical Summary ---
Author Organization [facility] Address [address] [place] [address] Care Team Providers Care Putty Mixer And Applier Name Role Phone Musa Espinal Primary Care Provider [phone] Allergies No known active allergies Medications * This document contains information received from the source organization and may not represent a complete record from that organization. DULoxetine DR (CYMBALTA) 60 mg capsule Take 120 mg by mouth once a day. 4 Active finasteride (PROSCAR) 5 mg tablet 1 mg once a day. Active gabapentin (NEURONTIN) 600 mg tablet Take 600 mg by mouth 3 times a day. Active clonazePAM (KlonoPIN) 1 mg tablet Take 0.5 mg by mouth nightly. Active ibuprofen (MOTRIN) 600 mg tablet Take 1 tablet (600 mg total) by mouth every 6 hours as needed for pain. Hold for 3 days after surgery 4 Active acetaminophen (TYLENOL) 325 mg tablet Take 2 tablets (650 mg total) by mouth every 6 hours as needed for pain. 4 Active propranolol LA (INDERAL LA) 60 mg capsule Take 1 capsule (60 mg total) by mouth once a day. 90 capsule 3 4 05/24/20 25 Active carbidopa-levod opa (SINEMET) 25-100 mg per tablet Take 2 tabs 9AM, 12PM, 3PM, 6PM, and 9PM. 900 tablet 2 5 Active carbidopa-levod opa ER/CR (SINEMET ER/CR) 50-200 mg tablet Take 2 tablets by mouth nightly. At bedtime. 60 tablet 11 5 01/08/20 26 Active rasagiline (AZILECT) 1 mg tablet Take 1 tablet (1 mg total) by mouth once a day. 30 tablet 11 5 01/08/20 26 Active trihexyphenidyL (ARTANE) 2 mg tablet Take 0.5 tablets (1 mg total) by mouth in the morning. 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 Encounters Date Type Department Care Team Description 04/11/2025 myChart Message [facility] [address] [place] [phone] Walter Prado LPN Pain clinic 04/02/2025 Telephone [facility] [address] [place] [address] [phone] Walter Prado LPN PAC Patient Request Call Back 02/26/2025 Telephone [facility] [address] [place] [address] [phone] Telephone Intake, Staff 02/23/2025 myChart Message [facility] [address] [place] [address] [phone] Jennifer Henriquez NP Scared 02/21/2025 myChart Message [facility] [address] [place] [address] 34344 Twyla Ricketts MD pain 02/18/2025 myChart Message [facility] [address] [place] [address] 73808 Jennifer Henriquez NP appt.... 02/18/2025 Telephone [facility] [address] [place] [address] 71812 Telephone Intake, Staff PAC Sick/Symptoms Dr. Jamarcus Henriquez; Extremity Weakness; Leg Pain 02/04/2025 [employer] Message [facility] [address] [place] [address] 29469 Jennifer Henriquez, RUCHI Something 01/28/2025 [employer] Message [facility] [address] [place] [address] 32246 Jennifer Henriquez NP DBS oddity 01/27/2025 8:00 AM EDT Office Visit [facility] [address] [place] [address] 12421 Jennifer Henriquez NP Parkinson's disease with dyskinesia, unspecified whether manifestations fluctuate (HCC) (Primary Dx); S/P deep brain stimulator placement 01/21/2025 Telephone [facility] [address] [place] [address] 24255 Yolie Torres RN 01/20/2025 [employer] Message [facility] [address] [place] [address] 42916 Jennifer Henriquez NP dbs 01/13/2025 8:00 AM EDT Office Visit [facility] [address] [place] [address] 53325 Jennifer Henriquez NP Parkinson's disease without dyskinesia or fluctuating manifestations (HCC) (Primary Dx); S/P deep brain stimulator placement from Last 3 Months Family History Medical History Relation Name Comments Other Mother Family History of depression Relation Name Status Comments Father Mother Alive Social History Tobacco Use Types Packs/Day Years Used Date Smoking Tobacco: Never Smokeless Tobacco: Never Tobacco Cessation:Counseling Given: Not Answered Comments:: Alcohol Use Standard Drinks/Week Comments Not Currently 0 (1 standard drink = 0.6 oz pur e alcohol) Sex and Gender Information Value Date Recorded Sex Assigned at Male 11/05/2023 7:39 PM EST Legal Sex Male 7:06 PM EDT Gender Identity Male 11/05/2023 7:39 PM EST Sexual Orientation Straight 11/05/2023 7: 39 PM EST Last Filed Vital Signs Vital Sign Reading Time Taken Comments Blood Pressure 118/82 01/27/2025 8:14 AM EDT Pulse 90 01/27/2025 8:14 AM EDT Temperature 36.4 C (97.5 F) 01/27/2025 8:09 AM EDT Respiratory Rate 18 01/27/2025 8:09 AM EDT Oxygen Saturation 98% 12/16/2024 9:17 AM EDT Inhaled Oxygen Concentration - - Weight 111.1 kg (245 lb) 01/27/2025 8:09 AM EDT Height 172.7 cm (5' 8 ) 01/27/2025 8:09 AM EDT Body Mass Index 37.25 01/27/2025 8:09 AM EDT Plan of Treatment Upcoming Encounters Date Type Department Care Team (Late st Contact Info) Description 04/23/2025 8:00 AM EDT Office Visit [facility] [address] [place] [address] Jennifer Henriquez NP [address] [place] [address] Health Maintenance Due Date Last Done Comments Cologuard 1969 Colon Cancer Screening 1969 Colonoscopy 1969 FOBT / Fit Test 1969 HIV Screening 1969 Hepatitis C Screening 1969 Sigmoidoscopy 1969 Hepatitis B Vaccines (1 of 3 - 19+ 3-dose series) 1988 Pneumococcal Vaccine: 50+ Ye ars (1 of 1 - PCV) 2019 Zoster Vaccines (1 of 2) 2019 COVID-19 Vaccine (2023-2 5 season) 2024 10/19/2020, 10/12/2020, 09/21/2020, Additional history exists Alcohol/Substance Use Screening 09/11/2024 Depression Screening and Follow-Up 09/11/2024 Social Drivers of Health Radha ual Screening 09/11/2024 Influenza Vaccine (#1) 2025 3, 06/30/2021, 06/13/2018, Additional history exists DTaP,Tdap,and Td Vaccines (4 - Td or Tdap) 01/27/2032 01/26/2022, 03/23/2018, 04/10/2012, Additional history exists RSV Vaccine (60+ years old a nd patients) (1 - 1-dose 75+ series) 2044 Medical Devices Implanted Type Area Casting Machine Operator Helper Device Identifier Shelf Expiration Date Model / Serial / Lot Battery Neurostimulator Dbs Pc [facility] - [id number] - [id number] Implanted:Qty: 1 on 02/20/2024 by Kane Peralta MD PhD at [facility] Implant Right: Chest [employer] 11/22/2025 [id number] / [id number] H / Explanted Type Area Casting Machine Operator Helper Device Identifier Shelf Expiration Date Model / Serial / Lot Battery Explanted:Qty: 1 on 02/20/2024 at [facility] Right: Chest Other 0 / / Care Teams Putty Mixer And Applier Relationship Specialty Start Date End Date Musa Espinal [address] [place] [address] PCP - General 03/30/17
--- OUTSIDE RECORDS SUMMARY | 2025-04-14 13:55 | XMS_ITS | Clinical Summary ---
Author Organization [facility] it Address [address] [place] [address] Care Team Providers Care Buttonhole Machine Operator Name Role Phone Musa Espinal DO Primary Care Provider [phone] Surgical History Surgery Date Site/Laterality Comments OTHER [...] Panel) 10/17/2019 Colorectal Cancer Screening: Colonoscopy 10/17/2019 HIV Screening 10/17/2019 Hepatitis C Screening 10/17/2019 Social Influencers of Health Screening 10/17/2019 COVID-19 Vaccine (1 - 2023-2 5 season) 2024 Depression Screening 09/11/2024 Hypertension/CHF/CAD Annual BMP Blood Test 01/16/2025 Influenza [...] age to complete this topic Care Teams Buttonhole Machine Operator Relationship Specialty Start Date End Date Musa Espinal DO [address] [place] [phone] PCP - General Internal Medicine 10/04/21
== END 2025-04-14 14:28 | disposition home or self-care (01) ==
LOC: HO.HMCSH 13:43
PROVIDERS: PCP Internal Medicine; Visit Provider Physician Assistant Medical
DX: G20.A1 Parkinson's disease without dyskinesia, without mention of fluctuations (principal); G62.9 Polyneuropathy, unspecified; F44.4 Conversion disorder with motor symptom or deficit; G89.29 Other chronic pain; R25.2 Cramp and spasm; K42.9 Umbilical hernia without obstruction or gangrene; G90.50 Complex regional pain syndrome I, unspecified

== ENCOUNTER → 2025-04-14 13:43 | Outpatient (BNVA) | payer MEDICARE, MEDICAID, SELFPAY | PROVIDERS: PCP Internal Medicine; Visit Provider Physician Assistant Medical | DX: G20.A1 Parkinson's disease without dyskinesia, without mention of fluctuations (principal); G62.9 Polyneuropathy, unspecified; F44.4 Conversion disorder with motor symptom or deficit; G89.29 Other chronic pain; K42.9 Umbilical hernia without obstruction or gangrene | CPT/HCPCS: 96127; 99212 ==

== ENCOUNTER 2025-06-23 16:07 | Outpatient (REF) | payer MEDICARE, MEDICAID, SELFPAY ==
--- OUTSIDE RECORDS SUMMARY | 2025-06-23 16:10 | XMS_ITS | Encounter Summary ---
Author Organization [facility] Address [address] [facility] [address] [place] [address] Phone Care Team Providers Care Transaction Processor Name Role Phone TeddyMusa DO Primary Care Provider [phone] Marky Johnson MD Unavailable Encounter Details Date Type Department Care Team (Late st Contact Info) Description 03/27/2024 Transcribe Orders [facility] - [place]ray, [place] [address] [facility], 3rd [place] [address] Gloria Watson [address] [place] [address] [email or web address] Social History Tobacco Use Types Packs/Day Years Used Date Smoking Tobacco: Former Smokeless Tobacco: Never Education Answer Date Recorded Are you interested in more education? Not on tania e 01/05/2023 Are you concerned about learning? Not on file 01/05/2023 No 01/05/2023 No 01/05/2023 Digital Access Answer Date Recorded No 02/06/2023 No 02/06/2023 No 02/06/2023 Reliable internet access at home? Not on file 02/06/2023 Device with a working camera? Not on file Sex and Gender Information Value Date Recorded Sex Assigned at Male 09/26/2023 2:04 PM EST Legal Sex Male 7:34 PM EST Gender Identity Male 09/26/2023 2:04 PM EST Sexual Orientation Straight 09/26/2023 2: 04 PM EST documented as of this encounter Plan of Treatment Not on file documented as of this encounter Visit Diagnoses Not on filedocumented in this encounter Care Teams Transaction Processor Relationship Specialty Start Date End Date Musa Espinal DO [address] [place] [address] PCP - General Internal Medicine 02/26/15 Marky Johnson MD [address] [place] [address] [email or web address] Anesthesiologist Anesthesiology 10/18/24 documented as of this encounter Additional Source Comments The information contained in this document represents components of the legal health record. It is not the complete legal health record.[facility]
--- OUTSIDE RECORDS SUMMARY | 2025-06-23 16:10 | XMS_ITS | Encounter Summary ---
Author Organization [facility] Address [address] [facility] [address] [place] [address] Phone Care Team Providers Care Porcelain Mixer Name Role Phone Musa Espinal DO Primary Care Provider [phone] Marky Johnosn MD Unavailable Encounter Details Date Type Department Care Team (Latest Contact Info) Description 11/03/2023 Ancillary Orders Social History Tobacco Use Types Packs/Day Years [...] on filedocumented in this encounter Care Teams Porcelain Mixer Relationship Specialty Start Date End Date Musa Espinal DO [address] [place] [address] PCP - General Internal Medicine 02/26/15 Marky Johnson MD [address] [place] [address] [email or web address] Anesthesiologist Anesthesiology 10/18/24 documented as of this encounter Additional Source Comments The information contained in this document represents components of the legal health record. It is not the complete legal health record.[facility]
--- OUTSIDE RECORDS SUMMARY | 2025-06-23 16:10 | XMS_ITS | Encounter Summary ---
Author Organization [facility] Address [address] [employer] [facility] [address] [place] [address] Phone Care Team Providers Care Courtroom Clerk Name Role Phone Musa Espinal DO Primary Care Provider [phone] Marky Johnson MD Unavailable Encounter Details Date Type Department Care Team (Late st Contact Info) Description 05/06/2024 Procedure Pass [facility], Ultrasound [address] [place] [address] Social History Tobacco Use Types Packs/Day Years [...] on filedocumented in this encounter Care Teams Courtroom Clerk Relationship Specialty Start Date End Date Musa Espinal DO [address] [place] [address] PCP - General Internal Medicine 02/26/15 Marky Johnson MD [address] [place] [address] [address] [place] [address] [email or web address] Anesthesiologist Anesthesiology 10/18/24 documented as of this encounter Additional Source Comments The information contained in this document represents components of the legal health record. It is not the complete legal health record.[facility]
--- OUTSIDE RECORDS SUMMARY | 2025-06-23 16:10 | XMS_ITS | Clinical Summary ---
Author Organization [facility] Address [address] [place] [address] Care Team Providers Care Admissions Rn Name Role Phone Ulisses Cee MD Unavailable [phone] Unknown, Pcp Primary Care Provider Unavailabl e [...] of Treatment Not on file Care Teams Admissions Rn Relationship Specialty Start Date End Date Unknown, PcpMD Unknown Address Unknown [facility] PCP - General Psychiatry 12/22/14 Ulisses Cee MD [address] [address] Neurology 12/22/14
--- OUTSIDE RECORDS SUMMARY | 2025-06-23 16:10 | XMS_ITS | Encounter Summary ---
Author Organization [facility] Address [address] [facility] [address] [place] [address] Phone Care Team Providers Care Finishing Machine Operator Name Role Phone Musa Espinal DO Primary Care Provider [phone] Marky Johnson MD Unavailable Encounter Details Date Type Department Care Team (Late st Contact Info) Description 12/21/2023 Procedure Pass [facility] - Ultrasound [address] [place] [address] Social History Tobacco Use Types Packs/Day Years [...] on filedocumented in this encounter Care Teams Finishing Machine Operator Relationship Specialty Start Date End Date Musa Espinal DO [address] [place] [address] PCP - General Internal Medicine 02/26/15 Marky Johnson MD [address] [place] [address] [address] [place] [address] [email or web address] Anesthesiologist Anesthesiology 10/18/24 documented as of this encounter Additional Source Comments The information contained in this document represents components of the legal health record. It is not the complete legal health record.[facility]
--- OUTSIDE RECORDS SUMMARY | 2025-06-23 16:10 | XMS_ITS | Clinical Summary ---
Author Organization [facility] it Address [address] [place] [address] Care Team Providers Care Line Up Examiner Name Role Phone Musa Espinal DO Primary Care Provider [phone] Surgical History Surgery Date Site/Laterality Comments OTHER [...] Health Maintenance Due Date Last Done Comments Colorectal Cancer Screening: Colonoscopy 1969 DTaP,Tdap,and Td Vaccines (1 - Tdap) 1988 Hepatitis B Vaccines (1 of 3 - 19+ 3-dose series) 1988 Pneumococcal Vaccine: 50+ Ye ars (1 of 1 - PCV) 2019 Zoster Vaccines (1 of 2) 2019 Cholesterol Screening (Lipid Panel) 10/17/2019 HIV Screening 10/17/2019 Hepatitis C Screening 10/17/2019 Social Influencers of Health Screening 10/17/2019 Depression Screening 09/11/2024 Hypertension/CHF/CAD Annual BMP Blood Test 01/16/2025 COVID-19 Vaccine (1 - 2023-2 5 season) 2025 Influenza Vaccine (#1) 2025 RSV Immunization Adult Patie nts (1 - 1-dose 75+ series) 2044 HIB Vaccines Aged Out No longer eligi [...] age to complete this topic Care Teams Line Up Examiner Relationship Specialty Start Date End Date Musa Espinal DO [address] [place] [phone] PCP - General Internal Medicine 10/04/21
--- OUTSIDE RECORDS SUMMARY | 2025-06-23 16:10 | XMS_ITS | Encounter Summary ---
Author Organization [facility] Address [address] [employer] [facility] [address] [place] [address] Phone Care Team Providers Care Associate Professor Of Pathology Name Role Phone Musa Espinal DO Primary Care Provider [phone] Marky Johnson MD Unavailable Encounter Details Date Type Department Care Team (Late st Contact Info) Description 03/21/2024 Procedure Pass [facility], Ultrasound [address] [place] [address] Social History Tobacco Use Types Packs/Day Years [...] on filedocumented in this encounter Care Teams Associate Professor Of Pathology Relationship Specialty Start Date End Date Musa Espinal DO [address] [place] [address] PCP - General Internal Medicine 02/26/15 Marky Johnson MD [address] [place] [address] [address] [place] [address] [email or web address] Anesthesiologist Anesthesiology 10/18/24 documented as of this encounter Additional Source Comments The information contained in this document represents components of the legal health record. It is not the complete legal health record.[facility]
--- OUTSIDE RECORDS SUMMARY | 2025-06-23 16:10 | XMS_ITS | Encounter Summary ---
Author Organization [facility] Address [address] [facility] [address] [place] [address] Phone Care Team Providers Care Senior Recruitment Consultant Name Role Phone Musa Espinal DO Primary Care Provider Marky Johnson MD Unavailable Encounter Details Date Type Department Care Team (Late Contact Info) Description 12/25/2023 Transcribe Orders [facility]patient Care, Radio Flouroscopy [address] [place] [address] Hank Bah MBBS [address] [place] [address] [email or web address] Social History Tobacco Use Types Packs/Day Years [...] on filedocumented in this encounter Care Teams Senior Recruitment Consultant Relationship Specialty Start Date End Date Musa Espinal DO [address] [place] [address] PCP - General Internal Medicine 02/26/15 Marky Johnson MD [address] [place] [address] [place] [address] [email or web address] Anesthesiologist Anesthesiology 10/18/24 documented as of this encounter Additional Source Comments The information contained in this document represents components of the legal health record. It is not the complete legal health record.[facility]
--- OUTSIDE RECORDS SUMMARY | 2025-06-23 16:10 | XMS_ITS | Encounter Summary ---
Author Organization [facility] Address [address] [email or web address] [facility] [address] [place] [address] Phone Care Team Providers Care Grocery Cashier Name Role Phone TeddyMusa DO Primary Care Provider Marky Johnson MD Unavailable Encounter Details Date Type Department Care Team (Late Contact Info) Description 11/03/2023 Transcribe Orders [facility] Outpatient Care, Radio Flouroscopy [address] [place] [address] [address] [place] [phone] [email or web address] Social History Tobacco Use Types Packs/Day Years [...] on filedocumented in this encounter Care Teams Grocery Cashier Relationship Specialty Start Date End Date Musa Espinal DO [address] [place] [address] PCP - General Internal Medicine 02/26/15 Marky Johnson MD [address] [place] [address] [place] [address] [email or web address] Anesthesiologist Anesthesiology 10/18/24 documented as of this encounter Additional Source Comments The information contained in this document represents components of the legal health record. It is not the complete legal health record.[facility]
--- OUTSIDE RECORDS SUMMARY | 2025-06-23 16:11 | XMS_ITS | Encounter Summary ---
Author Organization [facility] Address [address] [facility] [address] [place] [address] Phone Care Team Providers Care Supervisor Machining Name Role Phone Musa Espinal DO Primary Care Provider [phone] Marky Johnson MD Unavailable Encounter Details Date Type Department Care Team (Late st Contact Info) Description 10/05/2023 Procedure Pass [facility] - Ultrasound [address] [place] [address] Social History Tobacco Use Types Packs/Day Years [...] on filedocumented in this encounter Care Teams Supervisor Machining Relationship Specialty Start Date End Date Musa Espinal DO [address] [place] [address] PCP - General Internal Medicine 02/26/15 Marky Johnson MD [address] [place] [address] [address] [place] [address] [email or web address] Anesthesiologist Anesthesiology 10/18/24 documented as of this encounter Additional Source Comments The information contained in this document represents components of the legal health record. It is not the complete legal health record.[facility]
--- OUTSIDE RECORDS SUMMARY | 2025-06-23 16:11 | XMS_ITS | Clinical Summary ---
Author Organization [facility] Address [address] [place] [address] Care Team Providers Care Stock Broker Name Role Phone Musa Espinal Primary Care Provider [phone] Allergies No known active allergies Medications * This document contains information received from the source organization and may not represent a complete record from that organization. DULoxetine DR (CYMBALTA) 60 mg capsule Take 120 mg by mouth once a day. 11/09/2023 Active finasteride (PROSCAR) 5 mg tablet 1 [...] pain. Hold for 3 days after surgery 02/20/2024 Active acetaminophen (TYLENOL) 325 mg tablet Take 2 tablets (650 mg total) by mouth every 6 hours as needed for pain. 02/20/2024 Active propranolol LA (INDERAL LA) 60 mg capsule Take 1 capsule (60 mg total) by mouth once a day. 90 capsule 3 05/24/2024 Active carbidopa-levod opa (SINEMET) 25-100 mg per tablet Take 2 tabs 9AM, 12PM, 3PM, 6PM, and 9PM. 900 tablet 2 12/16/2024 Active carbidopa-levod opa ER/CR (SINEMET ER/CR) 50-200 mg tablet Take 2 tablets by mouth nightly. At bedtime. 60 tablet 11 01/07/2025 Active rasagiline (AZILECT) 1 mg tablet Take 1 tablet (1 mg total) by mouth once a day. 30 tablet 11 01/07/2025 Active Active Problems Problem Noted Date Diagnosed Date Paresthesia and pain of both upper extremities 0 11/21/2024 Adjustment disorder with mixed anxiety and depre ssed mood 11/01/2024 S/P deep brain stimulator placement 01/10/2024 Parkinson disease, symptomatic 01/27/2016 Depression 01/27/2016 Body dysmorphic disorder 01/27/2016 Encounters Date Type Department Care Team Description 05/18/2025 Refill [facility] [address] [place] [address] [phone] Jennifer Henriquez, RUCHI 05/05/2025 Center'dhart Message [facility] Financial Clearance Department [address] [place] [address] [phone] Mychart, Generic Provider No Auth required 05/02/2025 Refill [facility] [address] [place] [address] [id number] Jennifer Henriquez, RUCHI Parkinson's disease with dyskinesia, unspecified whether manifestations fluctuate (HCC) (Primary Dx) 05/01/2025 Refill [facility] [address] [place] [address] [phone] Jennifer Henriquez, RUCHI 04/28/2025 Refill [facility] [address] [place] [address] [phone] Jennifer Henriquez NP 04/25/2025 Refill [facility] [address] [place] [address] [phone] Jennifer Henriquez NP 04/22/2025 myChart Message [facility] [address] [place] [address] [phone] Twyla Ricketts MD Pain [facility] 04/11/2025 myChart Message [facility] [address] [place] [address] [phone] Walter Prado LPN Pain clinic 04/02/2025 Telephone [facility] [address] [place] [address] Walter Prado LPN PAC Patient Request Call Back from Last 3 Months Family History Medical [...] 01/27/2025 8:09 AM EDT Plan of Treatment Health Maintenance Due Date Last Done Comments Cologuard 1969 Colon Cancer Screening 1969 Colonoscopy 1969 FOBT / Fit Test 1969 HIV Screening 1969 Hepatitis C Screening 1969 Sigmoidoscopy 1969 Hepatitis B Vaccines (1 of 3 - 19+ 3-dose series) 1988 Pneumococcal Vaccine: 50+ Ye ars (1 of 1 - PCV) 2019 Zoster Vaccines (1 of 2) 2019 Alcohol/Substance Use Screening 09/11/2024 Depression Screening and Follow-Up 09/11/2024 Social Drivers of Health Radha ual Screening 09/11/2024 COVID-19 Vaccine (6 2024-2 6 season) 2025 10/19/2020, 10/12/2020, 09/21/2020, Additional history exists Influenza Vaccine (#1) 2025 , 06/30/2021, 06/13/2018, Additional history exists Diabetes Screening 02/05/2027 02/06/2024, 0 12/25/2020, 01/27/2016 DTaP,Tdap,and Td Vaccines (4 - Td or Tdap) 01/27/2032 01/26/2022, 03/23/2018, 04/10/2012, Additional history exists RSV Vaccine (60+ years old a nd patients) (1 - 1-dose 75+ series) 2044 Medical Devices Implanted Type Area Branch Operation Evaluation Manager Device Identifier Shelf Expiration Date Model / Serial / Lot Battery Neurostimulator Dbs P[employer] [facility] - [id number] - [id number] Implanted:Qty: 1 on 02/20/2024 by Kane Peralta MD PhD at [facility] Implant Right: Chest [employer] 11/22/2025 [id number] / [id number] H / Explanted Type Area Branch Operation Evaluation Manager Device Identifier Shelf Expiration Date Model / Serial / Lot Battery Explanted:Qty: 1 on 02/20/2024 at [facility] Right: Chest Other 0 / / Procedures * Due to [place] [employer] law, this organization might not be sharing negative HIV tests. Procedure Name Priority Date/Time Associated Diagnosis Comments COMPREHENSIVE METABOLIC PANEL Routine 02/06/2024 11:09 AM EDT End of battery life of deep brain stimulator from Last 3 Months or Most Recently Relevant to Health Maintenance Results * Due to [place] [employer] law, this organization might not be sharing negative HIV tests. * (ABNORMAL) Comprehensive Metabolic Panel (02/06/2024 11:09 AM EDT) NA 141 135 - 145 mmol/L 02/06/2024 2:41 PM EDT [facility] K 3.9 3.5 - 5.3 mmol/L 02/06/2024 2:41 PM [facility] Cl 104 97 - 110 mmol/L 02/06/2024 2:41 PM [facility] CO2 29 24 - 32 mmol/L 02/06/2024 2:41 PM [facility] Anion Gap 8 5 - 15 02/06/2024 2:41 PM [facility] Glucose 92 70 - 99 mg/dL 02/06/2024 2:41 PM [facility] Creatinine 0.99 0.60 - 1.30 mg/dL 02/06/2024 2:41 PM [facility] Calcium 9.3 8.7 - 10.7 mg/dL 02/06/2024 2:41 PM [facility] Total Protein 6.8 6.0 - 8.0 g/dL 02/06/2024 2:41 PM [facility] Albumin 4.3 3.5 - 4.8 g/dL 02/06/2024 2:41 PM [facility] Bilirubin, Total 0.4 0.3 - 1.2 mg/dL 02/06/2024 2:41 PM [facility] Alkaline Phosphatase 84 30 - 115 U/L 02/06/2024 2:41 PM [facility] AST 16 10 - 40 U/L 02/06/2024 2:41 PM [facility] ALT 5(L) 10 - 40 U/L 02/06/2024 2:41 PM [facility] BUN 13 7 - 23 mg/dL 02/06/2024 2:41 PM [facility] eGFR >90 >=60 mL/min/1. 73m2 02/06/2024 2:41 PM EDT [facility] Comment:The estimated glomer ular filtration rate (eGFR) is calculated using a new formula developed by the NKF-ASN task force to eliminate race-based correction factors. The new formula uses serum/plasma creatinine, age, and gender to determine eGFR. A value below 60mls/min might indicate kidney disease and will be flagged. For additional information, see Saab et al, Am J Kidney Dis. 2021;79(2):268- 288, A Unifying Approach for GFR estimation: Recommendations of the NKF-ASN Task Force on Reassessing the Inclusion of Race in Diagnosing Kidney Disease . Blood Structure of peripheral vein / Unknown Venipuncture / Unknown 02/06/2024 11:09 AM EDT 02/06/2024 2:14 PM EDT us Kane Peralta MD PhD LAB BLOOD ORDERABLES Final Result [facility] [address] [place] [phone], from Last 3 Months or Most Recently Relevant to Health Maintenance Insurance [facility] HMO/POS MEDICARE Care Teams Stock Broker Relationship Specialty Start Date End Date Musa Espinal [address] [place] [address] [phone] PCP - General 03/30/17
--- OUTSIDE RECORDS SUMMARY | 2025-06-23 16:11 | XMS_ITS | Clinical Summary ---
Author Organization [facility] Address [address] [facility] [address] [place] [phone] Phone Care Team Providers Care Nursing Home Physician Name Role Phone Musa Espinal DO Primary Care Provider Marky Johnson MD Unavailable Allergies No known active allergies Medications carbidopa-levod opa (SINEMET) 25-100 mg per tablet Take by mouth. 08/22/2015 Active clonazePAM (KLONOPIN) 1 MG tablet TAKE 1 TABLET BY MOUTH EVERY DAY AT BEDTIME NEEDED FOR 30 DAYS 08/24/2022 Active finasteride (PROPECIA) 1 mg tablet Take 1 mg by mouth. 08/22/1999 Active gabapentin (NEURONTIN) 300 MG capsule 300 mg 3 (three) times a day. Active rasagiline (AZILECT) 0.5 mg tablet Take 0.5 mg by mouth. 08/22/2015 Active thiamine 50 MG tablet Take 50 mg by mouth. 10/29/2020 Active Active Problems Problem Noted Date Diagnosed Date Parkinsonism 04/17/2015 Overview (08/18/2015): Parkinsonism Social History Tobacco Use Types Packs/Day Years Used Date Smoking Tobacco: Former Smokeless Tobacco: Never Tobacco Cessation:Counseling Given: Not Answered Education Answer Date Recorded Are you interested [...] Orientation Straight 09/26/2023 2: 04 PM EST Last Filed Vital Signs Vital Sign Reading Time Taken Comments Blood Pressure 142/98 08/21/2024 2:38 PM EST Pulse 124 08/21/2024 2:38 PM EST Temperature 36.7 C (98 F) 08/21/2024 2:38 PM EST Respiratory Rate 16 09/16/2022 7:47 AM EST Oxygen Saturation 97% 08/21/2024 2:38 PM EST Inhaled Oxygen Concentration - - Weight 103.4 kg (228 lb) 09/16/2022 7:47 AM EST Height 175.3 cm (5' 9 ) 04/17/2015 3:17 PM EDT Body Mass Index 33.67 04/17/2015 3:17 PM EDT Plan of Treatment Health Maintenance Due Date Last Done Comments Adult Td,Tdap Booster 1969 LIPID PANEL 1969 SMOKING Hx and SMOKELESS TOB ACCO SCREENING 1982 HEPATITIS C SCREENING 1987 HIV ONE-TIME SCREENING (18-6 5 YEARS) 1987 SCREENING FOR DIABETES 2004 COLOGUARD 2014 COLONOSCOPY 2014 COLORECTAL CANCER SCREENING 2014 FIT TEST 2014 FOBT 2014 SIGMOIDOSCOPY 2014 VIRTUAL COLONOSCOPY 2014 PNEUMOCOCCAL VACCINES (50+ y ears) (1 of 1 - PCV) 2019 ZOSTER VACCINES (1 of 2) 2019 DEPRESSION SCREENING 09/09/2023 09/09/2022 INFLUENZA VACCINE (#1) 2025 COVID-19 VACCINE ( - 2024-2 6 season) 2025 RSV VACCINE (1 - 1-dose 75+ series) 2044 HEPATITIS A VACCINES Aged Out No long er eligible based on patient's age to complete this topic HIB VACCINES Aged Out No longer eligi ble based on patient's age to complete this topic MENINGOCOCCAL VACCINES (ACWY) Aged Out No longer eligible based on patient's age to complete this topic MENINGOCOCCAL VACCINES (B) Aged Out N o longer eligible based on patient's age to complete this topic Medical Devices Not on file Insurance [employer] [facility] [place] [address] [address] [address] [facility] [place] [address] [place] [address] [facility] [address] [place] [address] [employer] [facility] Care Teams Nursing Home Physician Relationship Specialty Start Date End Date Musa Espinal DO [address] [place] [address] [phone] PCP - General Internal Medicine 02/26/15 Marky Johnson MD [address] [place] [address] [address] [place] [address] [email or web address] Anesthesiologist Anesthesiology 10/18/24 Additional Source Comments The information contained in this document represents components of the legal health record. It is not the complete legal health record.[facility]
--- OUTSIDE RECORDS SUMMARY | 2025-06-23 16:11 | XMS_ITS | Encounter Summary ---
Author Organization [facility] Address [address] [place] [address] Care Team Providers Care Heel Seat Flap Stapler Name Role Phone Musa Espinal Primary Care Provider [phone] Encounter Details Date Type Department Care Team (Late st Contact Info) Description 05/05/2025 Bokehart Message [facility] Financial Clearance Department [address] [place] [address] [phone] Mychart, Generic Provider [facility] [place] [id number] No Auth required Social History Tobacco Use Types Packs/Day Years [...] on filedocumented in this encounter Care Teams Heel Seat Flap Stapler Relationship Specialty Start Date End Date Musa Espinal [address] [place] [address] [phone] PCP - General 03/30/17 documented as of this encounter
--- OUTSIDE RECORDS SUMMARY | 2025-06-23 16:11 | XMS_ITS | Encounter Summary ---
Author Organization [facility] Address [address] [facility] [address] [place] [phone] Phone Care Team Providers Care Safety Analyst Name Role Phone Musa Espinal DO Primary Care Provider [phone] Marky Johnson MD Unavailable Encounter Details Date Type Department Care Team (Late st Contact Info) Description 02/23/2024 Procedure [facility], Ultrasound [address] [facility], [address] [place] [address] Social History Tobacco Use Types Packs/Day Years [...] on filedocumented in this encounter Care Teams Safety Analyst Relationship Specialty Start Date End Date Musa Espinal DO [address] [place] [phone] PCP - General Internal Medicine 02/26/15 Marky Johnson MD [address] [place] [address] [address] [place] [address] [email or web address] Anesthesiologist Anesthesiology 10/18/24 documented as of this encounter Additional Source Comments The information contained in this document represents components of the legal health record. It is not the complete legal health record.[facility]
--- OUTSIDE RECORDS SUMMARY | 2025-06-23 16:11 | XMS_ITS | Clinical Summary ---
Author Organization [facility] Address [address] [place] [phone] Care Team Providers Care Sheet Heater Helper Name Role Phone Teddy Musa Adalid DASH Primary Care Provider [phone] Allergies No known active allergies Medications Medication [...] age to complete this topic Care Teams Sheet Heater Helper Relationship Specialty Start Date End Date Musa Espinal DO [address] [place] [address] [phone] PCP - General Internal Medicine 06/18/20
[2025-06-23 16:31] LABS: MANUAL DIFF FLAG NO
[2025-06-23 16:33] LABS: Hematocrit 43.4 % (42.0-52.0); Hemoglobin 14.4 g/dl (14.0-18.0); Imm Gran Abs Auto 0.02 X10*3/uL (0.00-0.03); Imm Gran Pct Auto 0.3 % (0.0-0.4); Lymphocytes Absolute Auto 2.3 X10*3/uL (1.2-4.9); Mean Corpuscular HGB Conc 33.2 g/dl (31.0-36.0); Mean Corpuscular Hemoglobin 32.9 pg (27.0-33.0); Mean Corpuscular Volume 99.1 fL (80.0-98.0); NRBC Abs Auto 0.000 X10*3/uL (0.0-0.012); NRBC Pct Auto 0.0 /100WBC (0.0-0.2); Platelet Count 329 X10*3/uL (160-400); Red Blood Count 4.38 X10*6/uL (4.60-5.80); White Blood Count 7.3 X10*3/uL (4.8-10.8)
[2025-06-23 16:53] LABS: Alanine Aminotransferase 11 U/L (0-40); Albumin Level 4.2 g/dL (3.5-5.0); Alkaline Phosphatase 80 U/L (39-117); Anion Gap 8 (12-20); Aspartate Amino Transferase 23 U/L (5-37); Blood Urea Nitrogen 15 mg/dL (9-16); Calcium 9.0 mg/dL (8.4-10.2); Carbon Dioxide 32 mmol/L (22-29); Chloride 107 mmol/L (96-108); Cholesterol 168 mg/dL (<200); Estimated Glomerular Filt Rate > 60; HDL Cholesterol 47 mg/dL (>40); Magnesium 2.1 mg/dL (1.6-2.6); Potassium 4.4 mmol/L (3.3-5.1); Sodium 143 mmol/L (135-145); Total Protein 6.3 g/dL (6.5-8.0); Triglycerides 182 mg/dL (<150)
[2025-06-23 17:16] LABS: PSA,Total (Free>4and<10) 0.34 ng/mL (0.00-4.00)
[2025-06-23 17:19] LABS: Folate 6.2 ng/mL (> or = 4.0); Vitamin B12 404 pg/mL (200-900)
[2025-06-24 05:44] LABS: Hemoglobin A1C 134.6026 umol/L
== END 2025-06-23 16:08 | disposition home or self-care (01) ==
LOC: HO.LAB 16:07
PROVIDERS: PCP Internal Medicine; Visit Provider Physician Assistant Medical
DX: Z00.00 Encounter for general adult medical examination without abnormal findings (principal); Z12.5 Encounter for screening for malignant neoplasm of prostate; Z13.29 Encounter for screening for other suspected endocrine disorder; Z13.1 Encounter for screening for diabetes mellitus; Z13.21 Encounter for screening for nutritional disorder
CPT/HCPCS: 36415; 80053; 80061; 80076; 82248; 82306; 82550; 82607; 82746; 83036; 83735; 84153; 84443; 85025; 86140

== ENCOUNTER 2025-06-25 13:26 | Outpatient (AMB) | payer MEDICARE, MEDICAID, SELFPAY ==
--- NOTE | 2025-06-25 13:27 | A.OFFPC_ITS ---
Vital Signs 06/25/25 13:36 Height 5 ft 8 in Weight 245 lb BMI 37.2 BP 115/64 Blood Pressure Location Rt brachial Pulse 75 Pulse Source Pulse Oximeter Temp 97.3 F Pulse Oximetry (%) 98 Intake Visit Reasons: 3 month follow up Intake Note: legs and arms are bothering him. Allergies No Known Allergies Allergy (Verified 06/25/25 13:45) Medication List - Last Reconciled 06/25/25 by Maureen Ramírez PA-C carbidopa-levodopa 25-100 mg ER 1 tab PO BEDTIME carbidopa-levodopa 50-200 mg ER 1 tab PO BEDTIME chlorzoxazone 500 mg PO BID PRN 30 days clonazepam 0.5 mg PO BID PRN duloxetine 120 mg PO DAILY finasteride 5 mg PO DAILY gabapentin 600 mg PO TID 90 days propranolol ER 60 mg PO DAILY rasagiline (Azilect) 1 mg PO DAILY 90 days Tobacco use date assessed: 04/14/25 Dental Screening Did you have a dental visit in the last 12 months?: No HPI 3 month follow up HPI Details The patient is a 55-year-old male presenting for a follow-up visit regarding ongoing management of Parkinson's disease, neuropathy, and associated conditions. The patient reports persistent issues with his arms and legs, which have been ongoing and are attributed to his Parkinson's disease and neuropathy. He has been evaluated by a neurologist who suggested the use of apomorphine to manage his symptoms, although he is still awaiting the setup of the medication delivery system. The patient also experiences chronic pain and muscle cramps, which are part of his complex regional pain syndrome. He is currently on gabapentin for pain management, although its effectiveness is uncertain. The patient has a history of hypertension, for which he is taking propranolol. He expressed interest in potentially reducing the dosage, but is cautious about changes due to previous episodes of elevated heart rate. Additionally, the patient is being treated for anxiety and depression, with clonazepam and duloxetine as part of his regimen. He has regular consultations with a psychiatrist to manage these conditions. Social History - Family status: The patient's mother venegas s been experiencing frequent falls and was recently hospitalized. [facility] Medical History Complex regional pain syndrome I, unspecified Muscle cramps Functional neurological symptom disorder with abnormal movement Umbilical hernia Establishing care with new doctor, encounter for Polyneuropathy Parkinsonism, unspecified Encounter for colorectal cancer screening using Cologuard test (~11/17/22) Impingement of left ulnar nerve History of fracture of right ankle Essential hypertension Body dysmorphic disorder Anxiety Depression Ulnar nerve entrapment Parkinsons Surgical History H/O wisdom tooth extraction S/P deep brain stimulator placement Family History Mother Diabetes Father Dementia Social History Housing: House Alcohol intake: current Alcohol intake frequency: a few times a week Patient Tobacco Use Status: Never used Tobacco service: No Current occupational status: disabled Cognitive needs: Yes (parkinson's disease) Hearing needs: No Vision needs: Yes (reading glasses) Questionnaire PHQ-9 Over the last 2 weeks, how often have you been bothered by any of the following problems? 1. Little interest or pleasure in doing things: several days 2. Feeling down, depressed, or hopeless: several days 3. Trouble falling or staying asleep, or sleeping too much: several days 4. Feeling tired or having little energy: nearly every day 5. Poor appetite or overeating: not at all 6. Feeling bad about yourself - or that you are a failure or have let yourself or your family down: nearly every day 7. Trouble concentrating on things, such as reading the newspaper or watching television: several days 8. Moving or speaking so slowly that other people could have noticed. Or the opposite - being so fidgety or restless that you have been moving around a lot more than usual: several days 9. Thoughts that you would be better off or of hurting yourself in some way: not at all Total score: 11 Depression Screening Interpretation: Positive (Dr. Mel Mukherjee is currently treating patient ) Depression Screening Follow-up: Existing condition and In treatment Depression Screening Done: Yes 25195 - PHQ-9 Billing: Yes Source: Developed by Drs. Musa Bella, Starr Ward, Jai Durant and colleagues, with an educational loreta from [employer]. Thrive Questionnaire Date Thrive assessed: 03/12/25 I am a: Patient What is your living situation today?: I have a steady place to live Within the past 12 months, did the food you bought not last and you didn't have the money to get more?: Never true Within the past 12 months, did you worry whether your food would run out before you got money to buy more?: Never true Do you have trouble paying for medicines?: No Do you have trouble getting transportation to medical appointments?: No Do you have trouble paying your heating and electricity bill?: No Do you have trouble taking care of your child, family member or friend?: No Do you have trouble with day-to-day activities such as bathing, preparing meals, shopping, managing finances, etc.?: No Are you currently unemployed and looking for a job?: No Are you interested in more education?: No Please select the resources that you would like help with: None THRIVE Score: 0 AUDIT C Alcohol Use Questionnaire (AUDIT-C) 1. How often do you have a drink containing alcohol?: 2-3 times a week 2. How many drinks containing alcohol do you have on a typical day when you are drinking?: 1 or 2 3. How often do you have six or more drinks on one occasion?: Never Total Score: 3 Score Reviewed/Action Taken: No ZONIA-7 AMB Questionnaire ZONIA-7 Date ZONIA - 7 assessed: 03/12/25 Feeling nervous, anxious, or on edge: 3 = Nearly every day Not being able to stop or control worryin = Nearly every day Worrying too much about different things: 3 = Nearly every day Trouble relaxin = Nearly every day Being so restless that it is hard to sit still: 3 = Nearly every day Becoming easily annoyed or irritable: 3 = Nearly every day Feeling afraid as if something awful might happen: 3 = Nearly every day Total ZONIA-7 score (0-4 normal; 5-9 mild; 10-14 moderate; 15-21 severe): 21 Source: Developed by Drs. Musa Bella, Starr Ward, Jai Durant and colleagues, with an educational loreta from [employer]. ZONIA-7 Assessment Billing ZONIA-7 Assessment Tool: ZONIA-7 Assessment 26243 Review of Systems Const Details: - Neurological: Reports persistent issues with arms and legs, muscle cramps, and chronic pain. Denies any weather-related pattern to symptoms. - Cardiovascular: Reports previous episodes of elevated heart rate. All systems reviewed & are unremarkable except as noted in HPI and below Physical exam (Primary Care) Vital Signs: Last Vital Signs Temp 97.3 F 06/25/25 13:36 Pulse 75 06/25/25 13:36 BP 115/64 06/25/25 13:36 Pulse Ox 98 06/25/25 13:36 Care Plan Goal for BP management: <140/90 at Goal BMI result Body Mass Index 37.2 BMI Assessment/Plan discussion: High BMI High, discussed plan: lifestyle, weight reduction, dietary, physical activity, alcohol moderation and other Tobacco/Smoking Status: Tobacco use Status Tobacco use date assessed 04/14/25 06/25/25 13:29 Patient Tobacco Use Status Never used Tobacco 06/25/25 13:29 PHQ-9: PHQ-9 Score PHQ-9: Total score 11 06/25/25 15:47 Depression Screening Interpretation: Positive (Dr. Mel Mukherjee is currently treating patient ) Depression Screening Follow-up: Existing condition and In treatment Thrive Assessment: Date of Thrive Assessment Date Thrive assessed 03/12/25 06/25/25 13:29 Const Other: Appearance: Alert. Oriented X3. No acute distress. Head: Normal external exam. Normocephalic. Atraumatic. Eyes: Pupils are equal, round, and reactive to light. Extraocular movements intact. Conjunctiva and sclera normal. Eyelids normal. Neck: Normal inspection. Neck supple. Full range of motion. Cardiovascular: Normal heart rate and rhythm. Respiratory: No respiratory distress. Painless inspiration. Back: Full range of motion noted. Skin: Skin warm and dry. Normal skin color. Extremities:Extremities exhibit normal range of motion. Coding Level of Care Code Est Pt Level 4 (71477) Complex EM visit Add On G2211 Diagnoses Parkinsons G20.A1 Neuropathy G62.9 Functional neurological symptom disorder with abnormal movement F44.4 Chronic pain G89.29 Muscle cramps R25.2 Complex regional pain syndrome I, unspecified G90.50 Essential hypertension I10 Anxiety F41.9 Depression F32.A Additional Codes ZONIA-7 Assessment Billing - ZONIA-7 Assessment Tool: ZONIA-7 Assessment 24384 ([id number]) PHQ-9 - 77177 - PHQ-9 Billing: Yes ([id number]) Time Spent (min) 50 Assessment & Plan Assessment & Plan (1) Parkinsons: Code(s): G20.A1 - Parkinson's disease without dyskinesia, without mention of fluctuations Category: Medical Plan: The patient is awaiting the setup of an apomorphine delivery system to manage symptoms of Parkinson's disease. He is advised to follow up with his neurologist regarding the medication setup and its potential effects. (2) Neuropathy: Code(s): G62.9 - Polyneuropathy, unspecified Category: Medical Plan: The patient continues to experience neuropathy symptoms, which are being managed as part of his overall treatment plan. (3) Functional neurological symptom disorder with abnormal movement: Code(s): F44.4 - Conversion disorder with motor symptom or deficit Category: Medical Plan: The patient has been diagnosed with functional neurological disorder, and management is ongoing. (4) Chronic pain: Code(s): G89.29 - Other chronic pain Category: Medical Plan: Chronic pain management includes the use of gabapentin, although its effective ness is uncertain. (5) Muscle cramps: Code(s): R25.2 - Cramp and spasm Category: Medical Plan: Muscle cramps are being managed with current medications, and the patient is advised to monitor symptoms. (6) Complex regional pain syndrome I, unspecified: Code(s): G90.50 - Complex regional pain syndrome I, unspecified Category: Medical Plan: The patient is managing complex regional pain syndrome with current treatment regimens. (7) Essential hypertension: Code(s): I10 - Essential (primary) hypertension Category: Medical Plan: The patient is on propranolol for hypertension and is considering a dosage adjustment under medical supervision. We will decrease propranolol from 60 mg to 40 mg 20 mg b.i.d.. (8) Anxiety: Code(s): F41.9 - Anxiety disorder, unspecified Category: Medical Plan: Anxiety is being managed with clonazepam, and the patient is under regular psychiatric care. (9) Depression: Code(s): F32.A - Depression, unspecified Category: Medical Plan: Depression is being managed with duloxetine, and the patient is under regular psychiatric care. Plan Plan Patient was informed and verbally consented to the use of an ambient scribe for clinic note documentation during this visit. 1. Parkinson's Disease The patient is awaiting the setup of an apomorphine delivery system to manage symptoms of Parkinson's disease. He is advised to follow up with his neurologist regarding the medication setup and its potential effects. 2. Neuropathy The patient continues to experience neuropathy symptoms, which are being managed as part of his overall treatment plan. 3. Functional Neurological Disorder The patient has been diagnosed with functional neurological disorder, and management is ongoing. 4. Chronic Pain Chronic pain management includes the use of gabapentin, although its effectiveness is uncertain. 5. Muscle Cramps Muscle cramps are being managed with current medications, and the patient is advised to monitor symptoms. 6. Complex Regional Pain Syndrome The patient is managing complex regional pain syndrome with current treatment regimens. 7. Hypertension The patient is on propranolol for hypertension and is considering a dosage adjustment under medical supervision. 8. Anxiety Anxiety is being managed with clonazepam, and the patient is under regular psychiatric care. 9. Depression Depression is being managed with duloxetine, and the patient is under regular psychiatric care. During the visit, we discussed the ongoing management of the patient's Yolanda on's disease, including the setup of an apomorphine delivery system. We also reviewed the patient's current medication regimen for hypertension, anxiety, and depression, and considered potential adjustments. The patient was advised to monitor symptoms and follow up with his neurologist and psychiatrist as needed. Medications: New propranolol 20 mg PO BID 60 tabs 0RF 30 days Patient Instructions: - Follow up with your neurologist regarding the apomorphine delivery system setup. - Monitor your heart rate and report any significant changes. - Continue your current medication regimen and consult your psychiatrist for any adjustments. - Schedule a follow-up appointment in two months.
[2025-06-25 13:36] VITALS: BP 115/64; PULSE 75; TEMP 36.3; O2SAT 98; BMI 37.2
--- OUTSIDE RECORDS SUMMARY | 2025-06-25 17:06 | XMS_ITS | Encounter Summary ---
Author Organization [facility] Address [address] [facility] [address] [place] [phone] Phone Care Team Providers Care X Ray Developer Name Role Phone Musa Espinal DO Primary Care Provider [phone] Marky Johnson MD Unavailable Encounter Details Date [...] on filedocumented in this encounter Care Teams X Ray Developer Relationship Specialty Start Date End Date Musa Espinal DO [address] [place] [address] PCP - General Internal Medicine 02/26/15 Marky Johnson MD [address] [place] [address] [email or web address] Anesthesiologist Anesthesiology 10/18/24 documented as of this encounter Additional Source Comments The information contained in this document represents components of the legal health record. It is not the complete legal health record.[facility]
--- OUTSIDE RECORDS SUMMARY | 2025-06-25 17:06 | XMS_ITS | Encounter Summary ---
Author Organization [facility] Address [address] [facility] [address] [place] [address] Phone Care Team Providers Care Spanish Instructor Name Role Phone Musa Espinal DO Primary Care Provider Marky Johnson MD Unavailable Encounter Details Date Type Department Care Team (Late Contact Info) Description 12/25/2023 Transcribe Orders [facility] Outpatient Care, Radio Flouroscopy [address] [place] [address] Hank Bah MBBS [address] [place] [address] [email or web address] Social History Tobacco Use Types Packs/Day [...] on filedocumented in this encounter Care Teams Spanish Instructor Relationship Specialty Start Date End Date Musa Espinal DO [address] [place] [address] PCP - General Internal Medicine 02/26/15 Marky Johnson MD [address] [place] [address] [place] [id number] [email or web address] Anesthesiologist Anesthesiology 10/18/24 documented as of this encounter Additional Source Comments The information contained in this document represents components of the legal health record. It is not the complete legal health record.[facility]
--- OUTSIDE RECORDS SUMMARY | 2025-06-25 17:06 | XMS_ITS | Encounter Summary ---
Author Organization [facility] Address [address] [employer] [facility] [address] [place] [address] Phone Care Team Providers Care Top Distribution Executive Name Role Phone TeddyMusa DO Primary Care Provider Marky Johnson MD Unavailable Encounter Details Date Type Department Care Team (Late Contact Info) Description 11/03/2023 Transcribe Orders [facility] Outpatient Care, Radio Flouroscopy [address] [place] [address] [address] [place] [phone] [email or web address] Social History Tobacco Use Types Packs/Day Years [...] on filedocumented in this encounter Care Teams Top Distribution Executive Relationship Specialty Start Date End Date Musa Espinal DO [address] [place] [address] PCP - General Internal Medicine 02/26/15 Marky Johnson MD [address] [place] [address] [place] [phone] [email or web address] Anesthesiologist Anesthesiology 10/18/24 documented as of this encounter Additional Source Comments The information contained in this document represents components of the legal health record. It is not the complete legal health record.[facility]
--- OUTSIDE RECORDS SUMMARY | 2025-06-25 17:06 | XMS_ITS | Encounter Summary ---
Author Organization [facility] Address [address] [facility] [address] [place] [address] Phone Care Team Providers Care Distribution Engineer Name Role Phone Musa Espinal DO Primary Care Provider [phone] Marky Johnson MD Unavailable Encounter Details Date Type Department Care Team (Late st Contact Info) Description 12/21/2023 Procedure [facility] - Ultrasound [address] [place] [address] Social History Tobacco Use Types Packs/Day Years [...] on filedocumented in this encounter Care Teams Distribution Engineer Relationship Specialty Start Date End Date Musa Espinal DO [address] [place] [phone] PCP - General Internal Medicine 02/26/15 Marky Johnson MD [address] [place] [address] [address] [place] [address] [email or web address] Anesthesiologist Anesthesiology 10/18/24 documented as of this encounter Additional Source Comments The information contained in this document represents components of the legal health record. It is not the complete legal health record.[facility]
--- OUTSIDE RECORDS SUMMARY | 2025-06-25 17:07 | XMS_ITS | Clinical Summary ---
Author Organization [facility] Address [address] [place] [address] Care Team Providers Care Yarn Hauler Name Role Phone Musa Espinal Primary Care Provider [phone] Allergies No known active allergies Medications * [...] Type Department Care Team Description 05/18/2025 Refill [facility] [address] [place] [address] Jennifer Henriquez, RUCHI 05/05/2025 [employer] Message [facility] Financial Clearance Department [address] [place] [phone] Mychart, Generic Provider No Auth required 05/02/2025 Refill [facility] [address] [place] [address] Jennifer Henriquez, RUCHI Parkinson's disease with dyskinesia, unspecified whether manifestations fluctuate (HCC) (Primary Dx) 05/01/2025 Refill [facility] [address] [place] [address] Jennifer Henriquez, RUCHI 04/28/2025 Refill [facility] [address] [place] [address] Jennifer Henriquez NP 04/25/2025 Refill [facility] [address] [place] [address] 17869 Jennifer Henriquez NP 04/22/2025 myChart Message [facility] [address] [place] [address] Twyla Ricketts MD Pain [facility] 04/11/2025 myChart Message [facility] [address] [place] [phone] Walter Prado LPN Pain clinic 04/02/2025 Telephone [facility] [address] [place] [address] Walter Prado LPN PAC Patient Request Call [...] series) 2044 Medical Devices Implanted Type Area Marketing Sales Consultant Device Identifier Shelf Expiration Date Model / Serial / Lot Battery Neurostimulator Dbs Pc [facility] - [id number] - [id number] Implanted:Qty: 1 on 02/20/2024 by Kane Peralta MD PhD at [facility] Implant Right: Chest [employer] 11/22/2025 [id number] / [id number] H / Explanted Type Area Marketing Sales Consultant Device Identifier Shelf Expiration Date Model / Serial / Lot Battery Explanted:Qty: 1 on 02/20/2024 at [facility] Right: Chest Other 0 / / Procedures * Due to [place] [employer] law, this organization might not be sharing negative HIV tests. Procedure Name Priority Date/Time Associated Diagnosis Comments COMPREHENSIVE METABOLIC PANEL Routine 02/06/2024 11:09 AM EDT End of battery life of deep brain stimulator from Last 3 Months or Most Recently Relevant to Health Maintenance Results * Due to [place] [employer] law, this organization might not be sharing negative HIV tests. * (ABNORMAL) Comprehensive Metabolic Panel (02/06/2024 11:09 AM EDT) NA 141 135 - 145 mmol/L 02/06/2024 2:41 PM EDT [facility] K 3.9 3.5 - 5.3 mmol/L 02/06/2024 2:[address] [facility] Cl 104 97 - 110 mmol/L 02/06/2024 2:[address] [facility] CO2 29 24 - 32 mmol/L 02/06/2024 2:[address] [facility] Anion Gap 8 5 - 15 02/06/2024 2:[address] [facility] Glucose 92 70 - 99 mg/dL 02/06/2024 2:[address] [facility] Creatinine 0.99 0.60 - 1.30 mg/dL 02/06/2024 2:41 PM [facility] Calcium 9.3 8.7 - 10.7 mg/dL 02/06/2024 2:[address] [facility] Total Protein 6.8 6.0 - 8.0 g/dL 02/06/2024 2:[address] [facility] Albumin 4.3 3.5 - 4.8 g/dL 02/06/2024 2:41 PM [facility] Bilirubin, Total 0.4 0.3 - 1.2 mg/dL 02/06/2024 2:[address] [facility] Alkaline Phosphatase 84 30 - 115 U/L 02/06/2024 2:[address] [facility] AST 16 10 - 40 U/L 02/06/2024 2:[address] [facility] ALT 5(L) 10 - 40 U/L 02/06/2024 2:[address] [facility] BUN 13 7 - 23 mg/dL 02/06/2024 2:[address] [facility] eGFR >90 >=60 mL/min/1. 73m2 02/06/2024 2:41 PM EDT [facility] Comment:The estimated glomer ular [...] MD PhD LAB BLOOD ORDERABLES Final Result [facility] [address] [place] [phone], from Last 3 Months or Most Recently Relevant to Health Maintenance Insurance [facility] HMO/POS MEDICARE Care Teams Yarn Hauler Relationship Specialty Start Date End Date Musa Espinal [address] [place] [phone] PCP - General 03/30/17
--- OUTSIDE RECORDS SUMMARY | 2025-06-25 17:07 | XMS_ITS | Encounter Summary ---
Author Organization [facility] Address [address] [facility] [address] [place] [address] Phone Care Team Providers Care Instrument Repair Technician Name Role Phone Musa Espinal DO Primary Care Provider [phone] Marky Johnson MD Unavailable Encounter Details Date Type Department Care Team (Late st Contact Info) Description 02/23/2024 Procedure [facility], Ultrasound [address] [facility], [address]rd [place] [address] Social History Tobacco Use Types Packs/Day Years [...] on filedocumented in this encounter Care Teams Instrument Repair Technician Relationship Specialty Start Date End Date Musa Espinal DO [address] [place] [address] PCP - General Internal Medicine 02/26/15 Marky Johnson MD [address] [place] [address] [address] [place] [address] [email or web address] Anesthesiologist Anesthesiology 10/18/24 documented as of this encounter Additional Source Comments The information contained in this document represents components of the legal health record. It is not the complete legal health record.[facility]
--- OUTSIDE RECORDS SUMMARY | 2025-06-25 17:07 | XMS_ITS | Encounter Summary ---
Author Organization [facility] Address [address] [place] [address] Care Team Providers Care Movie Actor Name Role Phone Musa Espinal Primary Care Provider [phone] Encounter Details Date Type Department Care Team (Late st Contact Info) Description 05/05/2025 Airpushhart Message [facility] Financial Clearance Department [address] [place] [phone] Mychart, Generic Provider Formerly [facility] [place] [id number] No Auth required Social History Tobacco Use [...] on filedocumented in this encounter Care Teams Movie Actor Relationship Specialty Start Date End Date Musa Espinal [address] [place] [address] PCP - General 03/30/17 documented as of this encounter
--- OUTSIDE RECORDS SUMMARY | 2025-06-25 17:07 | XMS_ITS | Encounter Summary ---
Author Organization [facility] Address [address] [employer] [facility] [address] [place] [phone] Phone Care Team Providers Care Electrical Inspector Name Role Phone Musa Espinal DO Primary Care Provider [phone] Marky Johnson MD Unavailable Encounter Details Date Type Department Care Team (Late st Contact Info) Description 03/21/2024 Procedure Pass [facility], Ultrasound [address] [place] [address] Social History Tobacco Use Types Packs/Day Years [...] on filedocumented in this encounter Care Teams Electrical Inspector Relationship Specialty Start Date End Date Musa Espinal DO [address] [place] [phone] PCP - General Internal Medicine 02/26/15 Marky Johnson MD [address] [place] [address] [address] [place] [address] [email or web address] Anesthesiologist Anesthesiology 10/18/24 documented as of this encounter Additional Source Comments The information contained in this document represents components of the legal health record. It is not the complete legal health record.[facility]
--- OUTSIDE RECORDS SUMMARY | 2025-06-25 17:07 | XMS_ITS | Encounter Summary ---
Author Organization [facility] Address [address] [employer] [facility] [address] [place] [address] Phone Care Team Providers Care Pillow Filler Name Role Phone Musa Espinal DO Primary Care Provider [phone] Marky Johnson MD Unavailable Encounter Details Date Type Department Care Team (Late st Contact Info) Description 05/06/2024 Procedure Pass [facility], Ultrasound [address] [place] [address] Social History Tobacco Use Types Packs/Day Years [...] on filedocumented in this encounter Care Teams Pillow Filler Relationship Specialty Start Date End Date Musa Espinal DO [address] [place] [address] PCP - General Internal Medicine 02/26/15 Marky Johnson MD [address] [place] [address] [address] [place] [address] [email or web address] Anesthesiologist Anesthesiology 10/18/24 documented as of this encounter Additional Source Comments The information contained in this document represents components of the legal health record. It is not the complete legal health record.[facility]
--- OUTSIDE RECORDS SUMMARY | 2025-06-25 17:07 | XMS_ITS | Encounter Summary ---
Author Organization [facility] Address [address] [employer] [facility] [address] [place] [address] Phone Care Team Providers Care Steel Fabricating Supervisor Name Role Phone Musa Espinal DO Primary Care Provider [phone] Marky Johnson MD Unavailable Encounter Details Date Type Department Care Team (Late st Contact Info) Description 10/05/2023 Procedure Pass [facility] - Ultrasound [address] [place] [address] Social History Tobacco Use Types Packs/Day Years [...] on filedocumented in this encounter Care Teams Steel Fabricating Supervisor Relationship Specialty Start Date End Date Musa Espinal DO [address] [place] [phone] PCP - General Internal Medicine 02/26/15 Marky Johnson MD [address] [place] [address] [address] [place] [address] [email or web address] Anesthesiologist Anesthesiology 10/18/24 documented as of this encounter Additional Source Comments The information contained in this document represents components of the legal health record. It is not the complete legal health record.[facility]
--- OUTSIDE RECORDS SUMMARY | 2025-06-25 17:07 | XMS_ITS | Encounter Summary ---
Author Organization [facility] Address [address] [employer] [facility] [address] [place] [address] Phone Care Team Providers Care Building Repair Maintenance Supervisor Name Role Phone TeddyMusa DO Primary Care Provider Marky Johnson MD Unavailable Encounter Details Date Type Department Care Team (Late st Contact Info) Description 03/27/2024 Transcribe Orders [facility] Imaging - Xray, [place] [address] [facility], 3rd [place] [address] Gloria Watson [address] [place] [address] [email or web address] Social History Tobacco Use Types Packs/Day Years Used Date Smoking Tobacco: Former Smokeless Tobacco: Never Education Answer Date Recorded Are you interested in more education? Not on taina e 01/05/2023 Are you concerned about learning? [...] on filedocumented in this encounter Care Teams Building Repair Maintenance Supervisor Relationship Specialty Start Date End Date Musa Espinal DO [address] [place] [address] PCP - General Internal Medicine 02/26/15 Marky Johnson MD [address] [place] [address] [email or web address] Anesthesiologist Anesthesiology 10/18/24 documented as of this encounter Additional Source Comments The information contained in this document represents components of the legal health record. It is not the complete legal health record.[facility]
--- OUTSIDE RECORDS SUMMARY | 2025-06-25 17:07 | XMS_ITS | Clinical Summary ---
Author Organization [facility] Address [address] [place] [address] Care Team Providers Care Sawdust Drier Name Role Phone Teddy Musa Adalid DASH Primary Care Provider [phone] Allergies No known active allergies Medications Medication [...] age to complete this topic Care Teams Sawdust Drier Relationship Specialty Start Date End Date Musa Espinal DO [address] [place] [address] [phone] PCP - General Internal Medicine 06/18/20
--- OUTSIDE RECORDS SUMMARY | 2025-06-25 17:07 | XMS_ITS | Clinical Summary ---
Author Organization [facility] Address [address] [employer] [facility] [address] [place] [address] Phone Care Team Providers Care Firearms Sales Associate Name Role Phone Musa Espinal DO Primary [...] topic Medical Devices Not on file Insurance [employer] [facility] [facility] [place] [address] [place] [address] [facility] [place] [place] [address] [facility] [place] [place] [place] [address] [employer] [facility] Care Teams Firearms Sales Associate Relationship Specialty Start Date End Date Musa Espinal DO [address] [place] [address] PCP - General Internal Medicine 02/26/15 Marky oJhnson MD [address] [place] [address] [address] [place] [address] [email or web address] Anesthesiologist Anesthesiology 10/18/24 Additional Source Comments The information contained in this document represents components of the legal health record. It is not the complete legal health record.[facility]
== END 2025-06-25 14:07 | disposition home or self-care (01) ==
LOC: HO.HMCSH 13:26
PROVIDERS: PCP Internal Medicine; Visit Provider Physician Assistant Medical
DX: G20.A1 Parkinson's disease without dyskinesia, without mention of fluctuations (principal); G62.9 Polyneuropathy, unspecified; F44.4 Conversion disorder with motor symptom or deficit; G89.29 Other chronic pain; R25.2 Cramp and spasm; G90.50 Complex regional pain syndrome I, unspecified; I10 Essential (primary) hypertension; F41.9 Anxiety disorder, unspecified; F32.A Depression, unspecified

== ENCOUNTER → 2025-06-25 13:26 | Outpatient (BNVA) | payer MEDICARE, MEDICAID, SELFPAY | PROVIDERS: PCP Internal Medicine; Visit Provider Physician Assistant Medical | DX: G20.A1 Parkinson's disease without dyskinesia, without mention of fluctuations (principal); G62.9 Polyneuropathy, unspecified; I10 Essential (primary) hypertension; F41.9 Anxiety disorder, unspecified; F32.A Depression, unspecified; F44.4 Conversion disorder with motor symptom or deficit; G90.50 Complex regional pain syndrome I, unspecified | CPT/HCPCS: 96127; 99212 ==